=== PATIENT | male | born 1935 | race Caucasian/White ===

== ENCOUNTER 2016-11-27 14:05 | Inpatient (IN) | payer MEDICARE, BC ==
[2016-11-27] VITALS (13 sets, daily range): BP systolic 113–194; BP diastolic 56–119; PULSE 86–116; RESP 16–20; TEMP 97.9–98.2; O2SAT 96–99
[~2016-11-27] VITALS: Ht 180.3 cm; Wt 75.5 kg
[2016-11-27 14:27] LABS: I-STAT POTASSIUM 4.7 MMOL/L (3.5-4.9); I-STAT SODIUM 141 MMOL/L (138-146)
[2016-11-27 14:29] LABS: AUTOMATED NEUTROPHIL # 3.8 TH/MM3 (1.8-7.7); BASOPHIL # 0.1 TH/MM3 (0-0.2); BASOPHIL % 1.2 % (0.0-2.0); EOSINOPHIL # 0.4 TH/MM3 (0-0.4); EOSINOPHIL % 5.7 % (0.0-4.0); HEMATOCRIT 41.4 % (39.0-51.0); HEMO FLAGS DIFF FINAL; LYMPH % 21.4 % (9.0-44.0); LYMPHOCYTE # 1.5 TH/MM3 (1.0-4.8); MEAN CELL VOLUME 98.7 FL (80.0-100.0); MEAN CORPUSCULAR HEMOGLOBIN 33.5 PG (27.0-34.0); MEAN CORPUSCULAR HGB CONC 33.9 % (32.0-36.0); MONO % 16.4 % (0.0-8.0); NEUT % 55.3 % (16.0-70.0); PLATELET COUNT 160 TH/MM3 (150-450); RED BLOOD COUNT 4.19 MIL/MM3 (4.50-5.90); RED CELL DISTRIBUTION WIDTH 15.6 % (11.6-17.2); WHITE BLOOD COUNT 6.9 TH/MM3 (4.0-11.0)
[2016-11-27] MEDS ORDERED: IOHEXOL 350 MG/ML 10 ML VIAL (for RAD DIAG) IV ONE (14:29)
--- NOTE | 2016-11-27 14:30 | RADRPT ---
EXAM DATE/TIME: 11/27/2016 14:06 [facility] COMPARISON: No previous studies available for comparison. INDICATIONS : Stroke alert; left side weakness, altered mental status. RADIATION DOSE: 56.77 CTDIvol (mGy) This report was called by Dr. Keith to Dr. Martinez at 2: 27 PM MEDICAL HISTORY : Non-responsive. SURGICAL HISTORY : Non-responsive. ENCOUNTER: Initial ACUITY: 1 day PAIN SCALE: Non-responsive LOCATION: cranial TECHNIQUE: Multiple contiguous axial images were obtained of the head. Using automated exposure control and adj ustment of the mA and/or kV according to patient size, radiation dose was kept as low as reasonably a chievable to obtain optimal diagnostic quality images. FINDINGS: CEREBRUM: The ventricles are normal for age. Mild age-appropriate atrophy with minimal deep white matter microv ascular ischemic demyelinization. No evidence of midline shift, mass lesion, hemorrhage or acute infa rction. No extra-axial fluid collections are seen. POSTERIOR FOSSA: The cerebellum and brainstem are intact. The 4th ventricle is midline. The cerebellopontine angle i s unremarkable. EXTRACRANIAL: The visualized portion of the orbits is intact. Mucoperiosteal thickening in the ethmoid and maxillar y sinuses. SKULL: The calvaria is intact. No evidence of skull fracture. CONCLUSION: Normal for age. No acute intracranial process. Ken Keith MD on November 27, 2016 at 14:24 Board Certified Radiologist. This report was verified electronically.
[2016-11-27 14:35] LABS: APTT (PATIENT) 26.6 SEC (24.3-30.1); INTERNATIONAL NORMALIZED RATIO 1.4 RATIO; PROTHROMBIN TIME - PATIENT 15.4 SEC (9.8-11.6)
--- NOTE | 2016-11-27 14:36 | RADRPT ---
EXAM DATE/TIME: 11/27/2016 14:16 [facility] COMPARISON: CT BRAIN W/O CONTRAST, November 27, 2016, 14:06. INDICATIONS : Stroke alert; left side weakness. IV CONTRAST: 50 cc Omnipaque 350 (iohexol) IV ; Cumulative dose for multiple exams. RADIATION DOSE: 15.52 CTDIvol (mGy) ; Combined studies MEDICAL HISTORY : Non-responsive. SURGICAL HISTORY : Non-responsive. ENCOUNTER: Initial ACUITY: 1 day PAIN SCALE: Non-responsive LOCATION: cranial TECHNIQUE: Volumetric scanning was performed using a multi-row detector CT scanner. The data was post processed with a variety of visualization algorithms including full volume maximum intensity projection, multi -planar sliding thin slab reformation, curved planar reformation, and surface rendering techniques. Using automated exposure control and adjustment of the mA and/or kV according to patient size, radiat ion dose was kept as low as reasonably achievable to obtain optimal diagnostic quality images. FINDINGS: There is excellent visualization of the major intracranial arteries out to the third and fourth order branch vessels. There is no evidence for aneurysm and no evidence for vascular malformation. Distal right MCA reveals a short segment 2 or 3 mm area of significant stenosis. CONCLUSION: Abnormal short segment distal right middle cerebral artery M1 segment over a 3 cm length with signifi cant stenosis. Ken Keith MD on November 27, 2016 at 14:31 Board Certified Radiologist. This report was verified electronically.
[2016-11-27] MEDS ORDERED: DIGO0.12 PO (14:50)
[2016-11-27] MEDS ORDERED: FERR1TAB58 PO (14:50)
[2016-11-27] MEDS ORDERED: WARF-20 PO (14:50)
[2016-11-27] MEDS ORDERED: METO100T PO (14:50)
[2016-11-27] MEDS ORDERED: LOSA25TA PO (14:50)
--- NOTE | 2016-11-27 14:59 | RADRPT ---
EXAM DATE/TIME: 11/27/2016 14:16 [facility] COMPARISON: CTA BRAIN W 3D RECON, November 27, 2016, 14:16. CT BRAIN W/O CONTRAST, November 27, 2016, 14:06. INDICATIONS : Stroke alert; left side weakness. IV CONTRAST: 50 cc Omnipaque 350 (iohexol) IV ; Cumulative dose for multiple exams. RADIATION DOSE: 15.52 CTDIvol (mGy) ; Combined studies - Brain/Cervical Spine MEDICAL HISTORY : Non-responsive. SURGICAL HISTORY : Non-responsive. ENCOUNTER: Initial ACUITY: 1 day PAIN SCALE: Non-responsive LOCATION: neck TECHNIQUE: Volumetric scanning was performed using a multirow detector CT scanner. The data was post processed with a variety of visualization algorithms including full-volume maximum intensity projection, multip lanar sliding thin-slab reformation, curved-planar reformation, and surface-rendering techniques. Us ing automated exposure control and adjustment of the mA and/or kV according to patient size, radiatio n dose was kept as low as reasonably achievable to obtain optimal diagnostic quality images. FINDINGS: AORTIC ARCH: Normal 3 vessel origin is noted with flecks of calcification at the initial segment of the left subcl patrick and left common carotid artery as well as origin of the right vertebral artery RIGHT CAROTID: There is atherosclerotic calcific plaquing initial segment the internal carotid with high grade steno sis in the range of 90% of an initial 1 cm segment. LEFT CAROTID: Posterior soft and calcific plaque initial segment of the internal carotid artery without significant stenosis. VERTEBRALS: The vertebral arteries have a symmetric diameter. No stenotic lesions are seen. Calcification noted at the origin the right vertebral artery CONCLUSION: Atherosclerotic calcific and soft plaquing initial segment of bilateral internal carotid arteries wit hout stenosis on the left and there is high grade 90% stenosis on the right. Ken Keith MD on November 27, 2016 at 14:54 Board Certified Radiologist. This report was verified electronically.
[2016-11-27 15:05] LABS: BLOOD, URINE NEG (NEG); COMMENT (UR) CULT NOT INDICATED; GLUCOSE,URINE NEG (NEG); KETONE, URINE NEG (NEG); MUCUS URINE FEW /lpf (OCC); NITRITE,URINE NEG (NEG); URINE COLOR YELLOW (YELLW/STRAW)
[2016-11-27 15:10] LABS: AMPHETAMINE, URINE NEG (NEG); BARBITURATES, URINE NEG (NEG); COCAINE, URINE NEG (NEG)
--- NOTE | 2016-11-27 15:17 | PD ---
HPI Chief Complaint: Stroke Alert Time Seen by Provider: 14:06 Travel History International Travel<30 days: No Contact w/Intl Traveler<30days: No Traveled to known affect area: No History of Present Illness HPI This is a 81-year-old male who has a history of atrial fibrillation who presents to the emergency department having been walking to the bathroom seen normal by his family at 12:30 and at 1250 they heard a thump and found him on the bathroom floor having fallen. The patient is on Coumadin. He was found to have left arm and left leg weakness by EMS and a stroke alert was called. History is limited due to the patient's dysarthria. [facility] Past Medical History Medical History: Unable to Obtain ?: Unknown Past Surgical History Surgical History: Unable to Obtain Social History Alcohol Use: No Tobacco Use: No Substance Use: No Allergies-Medications (Allergen,Severity, Reaction): Coded Allergies: Lisinopril (Verified Allergy, Unknown, 11/27/16) Reported Meds & Prescriptions Reported Meds & Active Scripts Active Reported Losartan (Losartan Potassium) 25 Mg Tab 25 Mg PO DAILY Warfarin 4 Mg Tab 4 Mg PO DAILY Iron (Ferrous Sulfate) 50 Mg Tab 65 Mg PO DAILY Digoxin 0.125 Mg Tab 0.125 Mg PO DAILY Metoprolol Tartrate 100 Mg Tab 100 Mg PO BID Review of Systems ROS Limitations: Speech Impaired Physical Exam Narrative GENERAL:Well appearing, no acute distress SKIN: Warm and dry. HEAD: Atraumatic. Normocephalic. EYES: Pupils equal and round. No injection or drainage. ENT: Moist mucous membranes NECK: Trachea midline. CARDIOVASCULAR: Regular rate and rhythm. No murmur appreciated. RESPIRATORY: Clear to auscultation. Breath sounds equal bilaterally. GASTROINTESTINAL: Abdomen soft, non-tender, nondistended. MUSCULOSKELETAL: No obvious deformities. NEUROLOGICAL: Awake and alert. Left-sided facial droop, complete left upper extremity paralysis, 3 out of 5 strength in the left lower extremity, ataxia on the left side, mild dysarthria and aphasia PSYCHIATRIC: Appropriate mood and affect; insight and judgment normal. Data Data Last Documented VS Vital Signs Date Time Temp Pulse Resp B/P Pulse Ox O2 Delivery O2 Flow Rate FiO2 11/27/16 14:55 108 16 182/116 99 Nasal Cannula 2 11/27/16 14:05 98.2 Orders Diet Npo (11/27/16 Dinner) Activity Bed Rest (11/27/16 ) Electrocardiogram (11/27/16 ) I-Stat Creatinine (11/27/16 14:06) I-Stat Profile (11/27/16 14:06) Prothrombin Time / Inr (Pt) (11/27/16 14:06) Act Partial Throm Time (Ptt) (11/27/16 14:06) Complete Blood Count With Diff (11/27/16 14:06) Fibrinogen (11/27/16 14:06) Creatine Kinase (Cpk) (11/27/16 14:06) Troponin I (11/27/16 14:06) Ua Includes Microscopic (11/27/16 14:06) Drug Screen, Random Urine (11/27/16 14:06) Type And Screen (11/27/16 14:06) Ct Brain W/O Iv Contrast(Rout) (11/27/16 ) Consult Neurology (11/27/16 ) Blood Glucose (11/27/16 14:06) Ecg Monitoring (11/27/16 14:06) Neuro Checks Q2HX12,Q4H (11/27/16 14:06) Nursing Bedside Swallow Assess .ONCE (11/27/16 14:06) Iv Access Insert/Monitor (11/27/16 14:06) NPO (11/27/16 14:06) Oximetry (11/27/16 14:06) Oxygen Administration (11/27/16 14:06) Resp Oxygen Agustin C Titrat 1-4 L (11/27/16 14:06) Cath For Specimen (11/27/16 14:06) Cta Brain W Iv Contrast W 3d (11/27/16 ) Cta Neck W Iv Contrast W 3d (11/27/16 ) Iohexol 350 Inj (Omnipaque 350 Inj) (11/27/16 14:29) Nicardipine Inj (Cardene Inj) (11/27/16 15:01) Verapamil Inj (Isoptin Inj) (11/27/16 15:27) Midazolam Inj (Versed Inj) (11/27/16 15:36) Fentanyl Inj (Fentanyl Inj) (11/27/16 15:36) Admit Order (Ed Use Only) (11/27/16 15:41) Angiogram, Cerebral Wo Arch (11/27/16 ) Labs Laboratory Tests Test 11/27/16 11/27/16 14:08 14:25 White Blood Count 6.9 TH/MM3 Red Blood Count 4.19 MIL/MM3 Hemoglobin 14.0 GM/DL Bedside Hemoglobin 14.6 G/DL Hematocrit 41.4 % Bedside Hematocrit 43.0 % Mean Corpuscular Volume 98.7 FL Mean Corpuscular Hemoglobin 33.5 PG Mean Corpuscular Hemoglobin 33.9 % Concent Red Cell Distribution Width 15.6 % Platelet Count 160 TH/MM3 Mean Platelet Volume 8.3 FL Neutrophils (%) (Auto) 55.3 % Lymphocytes (%) (Auto) 21.4 % Monocytes (%) (Auto) 16.4 % Eosinophils (%) (Auto) 5.7 % Basophils (%) (Auto) 1.2 % Neutrophils # (Auto) 3.8 TH/MM3 Lymphocytes # (Auto) 1.5 TH/MM3 Monocytes # (Auto) 1.1 TH/MM3 Eosinophils # (Auto) 0.4 TH/MM3 Basophils # (Auto) 0.1 TH/MM3 CBC Comment DIFF FINAL Differential Comment Prothrombin Time 15.4 SEC Prothromb Time International 1.4 RATIO Ratio Activated Partial 26.6 SEC Thromboplast Time Fibrinogen 241 mg/dL Bedside Sodium 141 MMOL/L Bedside Potassium 4.7 MMOL/L Bedside Chloride 105 MMOL/L Bedside Blood Urea Nitrogen 13 MG/DL Bedside Creatinine 1.2 MG/DL Bedside Glucose 132 MG/DL Total Creatine Kinase 100 U/L Troponin I LESS THAN 0.02 NG/ML Blood Type A NEGATIVE Antibody Screen NEGATIVE Blood Bank Comment Urine Color YELLOW Urine Turbidity CLEAR Urine pH 8.0 Urine Specific [place] 1.016 Urine Protein TRACE mg/dL Urine Glucose (UA) NEG mg/dL Urine Ketones NEG mg/dL Urine Occult Blood NEG Urine Nitrite NEG Urine Bilirubin NEG Urine Urobilinogen LESS THAN 2.0 MG/DL Urine Leukocyte Esterase NEG Urine RBC LESS THAN 1 /hpf Urine WBC LESS THAN 1 /hpf Urine Mucus FEW /lpf Microscopic Urinalysis Comment CULT NOT INDICATED Urine Opiates Screen NEG Urine Barbiturates Screen NEG Urine Amphetamines Screen NEG Urine Benzodiazepines Screen NEG Urine Cocaine Screen NEG Urine Cannabinoids Screen NEG MDM Medical Screen Exam Complete: Yes Emergency Medical Condition: Yes Differential Diagnosis Hemorrhagic stroke, ischemic stroke, TIA, seizure, mass Narrative Course This is a 81-year-old male who presents to the emergency department with symptoms classic for ischemic stroke. He had an NIH stroke scale of 20 on arrival and last seen normal time was an hour and a half prior to arrival in the ER. Stroke alert was called and the patient was transported rapidly to CT which was negative for intracranial hemorrhage. PT was 15.4 which is contraindication to systemic TPA. The case was discussed with Dr. Gunderson from interventional radiology who agreed to take the patient for thrombectomy. Family was amenable to this and understood the risks. Patient was transferred to interventional radiology and will be admitted to the intensive care unit. Critical Care Narrative Aggregate critical care time was 50 minutes. Time to perform other separately billable procedures was not included in the critical care time. My time did not include minutes spent treating any other patients simultaneously or on activities that did not directly contribute to the patient's treatment. The services I provided to this patient were to treat and/or prevent clinically significant deterioration that could result in: Disability, I provided critical care services requiring my management, as noted below: Chart data review, documentation time, medication orders and management, vital sign assessments/reviewing monitor data, ordering and reviewing lab tests, ordering and interpreting/reviewing x-rays and diagnostic studies, care of the patient and discussion of the patient with the admitting physicians. Stroke Alert NIHSS NIH Stroke Scale Result: 20 NIHSS Time Completed: 14:00 Thrombolytic Contraindications Contraindications Comment: Coumadin with PT of 15.4 Physician Communication Physician Communication Discussed with Dr. Obrien from neurology and Dr. Gunderson from interventional radiology as well as Dr. Jacobsen from ICU Diagnosis Diagnosis: Primary Impression: Acute right MCA stroke Admitting Physician Requests: Admit Adrianna Martinez MD Nov 27, 2016 15:16
[2016-11-27] MEDS ORDERED: VERAPAMIL HCL 5 MG/2 ML VIAL ONE (15:27)
[2016-11-27] MEDS ORDERED: MIDAZOLAM HCL 5 MG/5 ML VIAL ONE (15:36)
[2016-11-27] MEDS ORDERED: fentaNYL CITRATE 250 MCG/5 ML AMP ONE (15:36)
[2016-11-27 15:55] LABS: CREATINE KINASE 100 U/L (39-308)
[2016-11-27] MEDS ORDERED: HEPARIN SODIUM - IV 10,000 UNITS/10 ML VIAL ONE (16:01)
[2016-11-27] MEDS ORDERED: IODIXANOL 320 MG/ML 50 ML VIAL (for RAD SPEC) I-ARTERIAL ONE (16:12)
--- NOTE | 2016-11-27 16:24 | PD.RAD ---
Post Procedure Progress Note Pre Procedure Diagnosis: (1) Acute right MCA stroke Post Procedure Diagnosis: (1) Acute right MCA stroke Procedure Date: Nov 27, 2016 Supervising Radiologist: Tu Gunderson JR Proceduralist/Assist: Beulah Castle RT(R), Cheryle Chacon RT(R)() Anesthesia: Conscious Sedation Plan of Activity Patient to Unit: Critical Care Patient Condition: Fair See PACS Report for procedural detail/treatment Vascular-Arterial Procedure Procedure 1 Procedure Site: Cerebral Procedure(s): Angiogram Access Access Site(s): Right Femoral Artery Closure Site(s): Right vascular closure device Findings: Right ICA cerebral angiography shows no thrombus. 40-50% stenosis of proximal M2 branch. Good flow thru this stenosis. Good enhancement of the brain parenchyma. Right ICA origin stenosis 50-60%. Jr. Neptali,Tu Spence MD Nov 27, 2016 16:24
--- NOTE | 2016-11-27 17:14 | RADRPT ---
EXAM DATE/TIME: 11/27/2016 15:10 [facility] COMPARISON: CTA BRAIN W 3D RECON, November 27, 2016, 14:16. INDICATIONS : Patient presents with stroke in need of cerebral angiogram. Stroke score of 20. Subtherapeutic on Cou madin. INR 1.4. Left hemiparesis. MEDICAL HISTORY : A-Fib SURGICAL HISTORY : Unable to obtain ENCOUNTER: Initial ACUITY: 1 day PAIN SCORE: Nonresponsive. FLUORO TIME: 4.2 minutes ACCESS SITE: Right Femoral artery SEDATION TIME: 30 minutes CONTRAST: 50 cc Visipaque (iodixanol) MEDICATION(S): 1.) 2 mg midazolam (Versed) IV 2.) 100 mcg fentanyl (Sublimaze) IV DEVICE(S): 1.) Right common femoral artery 5F Angio-Seal PROCEDURE : 1. Ultrasound-guided puncture of the access site. 2. Angiography of the access site prior to closure device. 3. Conscious sedation with continuous EKG and Oximetry monitoring. 4. Percutaneous closure of the access site. 5. Angiography of the right common carotid artery 6. Angiography of the intracranial right ICA The risks, benefits and alternatives to the procedure were explained and verbal and written consent w as obtained. The site was prepped in sterile fashion. Full sterile technique was used, including ca p, mask, sterile gloves and gown and a large sterile sheet. Hand hygiene and 2% chlorhexidine and/or betadine/alcohol prep was utilized per protocol for cutaneous antisepsis. The skin and subcutaneous tissues were infiltrated with local anesthetic solution. With ultrasound and fluoroscopic guidance the right common femoral artery was punctured and a vascula r sheath was placed. Angiography of the common femoral artery was performed for evaluation prior to percutaneous closure device placement. A5 Divehi sheath was placed. A Berenstein catheter was utilized to select the right common carotid ar teena and angiography of the extracranial ICA performed. These images reveal a focal calcified atheros clerotic plaque involving the origin of the right ICA. This generates a 50-60% stenosis of the ICA or igin. No ulceration. Good antegrade flow through the stenotic segment is seen. A Berenstein catheter was then positioned within the extracranial ICA at the level of the skull base. Dedicated intracrania l angiography on the right was performed at this level. This reveals a focal stenosis involving the p roximal M2 branch on the right. There is circumferential smooth mild narrowing of the proximal M2 bra nch best appreciated on the frontal projection. This correlates to the finding on the CTA. Area of na rrowing is consistent with a stenosis. Is not consistent with a embolus or thrombus. The stenosis carter sures approximately 50%. Good antegrade flow is seen through the stenotic segment. There is good pare nchymal enhancement the right cerebral hemisphere. No areas of poor enhancement observed. Hemostasis was obtained with the prescribed medicated closure device. Conscious sedation was perform ed with the prescribed dosages and duration as above. EKG and oximetry remained stable throughout th e procedure. The patient was sent to post anesthesia recovery in stable condition. CONCLUSION: 1. 50-60% stenosis of the right ICA origin. 2. 50% stenosis of a proximal M2 branch on the right without thrombus or occlusion. Good flow is seen through this segment. There is no embolus or thrombus present amenable to thrombectomy. Tu Gunderson Jr., MD on November 27, 2016 at 17:01 Board Certified Radiologist. This report was verified electronically.
[2016-11-27] MEDS: SODIUM CHLOR 0.9% 1000 ML INJ 1,000 ML IV SCH (20:03)
--- NOTE | 2016-11-27 20:12 | MB ---
cc: NICOL MENA M.D.,LIYA DATE OF CONSULTATION: 11/27/2016 REASON FOR CONSULTATION: HISTORY OF PRESENT ILLNESS: The patient is a 81 year-old seen in neurological consultation. He came in as a stroke alert. I spoke to Dr. Cortez on multiple occasions. The patient was seen in the emergency room approximately 45 minutes ago. He had the onset of symptoms around 12:30 when he was last noted to be functioning well per the family. About 15 to 20 minutes later, the family heard a thump and found him on the bathroom floor. The patient has a history of atrial fibrillation on Coumadin. In the emergency room he was noted to have left-sided weakness, some bruising in his left frontal orbital region and conjunctival bleeding on the left. The patient reportedly is taking warfarin 4 milligrams daily, losartan, digoxin, metoprolol. PHYSICAL EXAMINATION: Exam showed the patient to be awake, denying headaches. He was reasonably alert and grossly oriented with dysarthric speech. There was left facial weakness and there was severe left upper extremity weakness. Left lower extremity weakness is moderately severe and he almost is able to raise the left leg. He does dorsiflex the left foot and toes and resists mildly. The right-sided limbs were strong on the motor exam. He has perception to somatosensory stimulation bilaterally. The CT brain is negative. The CTA neck shows right internal carotid artery 90% stenosis and no significant stenosis on the left. The CT angio neck shows a right M1 segment with significant stenosis. ASSESSMENT Right hemisphere ischemic cerebrovascular event. Atrial fibrillation, on Coumadin with INR being 1.4, though the prothrombin time is 15.4. I did not feel he was a candidate for TPA because of his elevated protime, he is 81-year-old and he also has other concerns including the conjunctival hemorrhage and left frontal orbital bruising from the fall. Nonetheless, as discussed with Dr. Cortez, the patient was felt to be a possible candidate for endovascular thrombectomy and the interventional radiology team was contacted and is evaluating the patient in this regard with the initial plan to go ahead with the procedure. I have discussed with the patient's at the bedside in the emergency room the benefits and the basic risks with these but evidently the procedure will be discussed by the interventional radiologist in more detail. I will follow the neurological course. Thank you for asking us to assist in his care. MD JORDI Aguilar/PRAKASH /3:44 PM /7:10 PM
[2016-11-27] MEDS ORDERED: ONDANSETRON HCL 4 MG/2 ML VIAL IV PRN (20:15)
[2016-11-27] MEDS ORDERED: SODIUM CHLORIDE 0.9% FLUSH 5 ML FLUSH IV FLUSH PRN (20:15)
[2016-11-27] MEDS ORDERED: MISCELLANEOUS NURSING INFORMATION XX SCH (20:15)
[2016-11-27] MEDS ORDERED: RESP: ALBUTEROL 2.5 MG/IPRATROPIUM 0.5 MG NEB (PRN) INH (20:15)
[2016-11-27] MEDS ORDERED: METOCLOPRAMIDE HCL 10 MG/2 ML VIAL IV PRN (20:15)
[2016-11-27] MEDS ORDERED: CHLORHEXIDINE GLUCONATE 2 % 1 PACK (2 CLOTHS) TOP PRN (20:15)
[2016-11-27] MEDS: FAMOTIDINE 20 MG/2 ML VIAL IV PUSH SCH (21:00)
[2016-11-27] MEDS: SODIUM CHLORIDE 0.9% FLUSH 5 ML FLUSH IV FLUSH SCH (21:00)
[2016-11-27] MEDS: DOCUSATE SODIUM 100 MG CAP PO SCH (21:00)
[2016-11-27] MEDS: METOPROLOL TARTRATE 100 MG TAB PO SCH (21:00)
[2016-11-27] MEDS: HEPARIN SODIUM - SQ 10,000 UNITS/ML VIAL SQ SCH (22:00)
--- NOTE | 2016-11-27 22:21 | HHI.HP ---
HPI Service Critical Care Medicine Primary Care Physician Admission Diagnosis stroke Diagnosis: Travel History International Travel<30 Days: No Contact w/Intl Traveler <30 Da: No Traveled to Known Affected Are: No History of Present Illness 81-year-old male who has a history of atrial fibrillation and hypertension presents having been walking to the bathroom seen normal by his family at 12:30 and at 1250 they heard a thump and found him on the bathroom floor having fallen. The patient is on Coumadin for chronic atrial fibrillation. He was found to have left arm and left leg weakness by EMS and a stroke alert was called. Review of Systems ROS Unable to obtain due to patient's dysarthria Past Family Social History Allergies: Coded Allergies: Lisinopril (Verified Allergy, Unknown, 11/27/16) Past Medical History Hypertension Atrial fibrillation Chronic anticoagulation Past Surgical History Unknown Reported Medications Reported Meds & Active Scripts Active Reported Losartan (Losartan Potassium) 25 Mg Tab 25 Mg PO DAILY Warfarin 4 Mg Tab 4 Mg PO DAILY Iron (Ferrous Sulfate) 50 Mg Tab 65 Mg PO DAILY Digoxin 0.125 Mg Tab 0.125 Mg PO DAILY Metoprolol Tartrate 100 Mg Tab 100 Mg PO BID Active Ordered Medications Current Medications Medications (Trade) Dose Ordered Sig/Opal Route PRN Reason Start Time Stop Time Status Last Admin Dose Admin Sodium Chloride (NS 1000 ml Inj) 1,000 ml @ 84 mls/hr [id number] IV 11/27/16 20:03 IV Flush (NS Flush) 2 ml UNSCH PRN IV FLUSH FLUSH AFTER USING IV ACCESS 11/27/16 20:15 IV Flush (NS Flush) 2 ml BID IV FLUSH 11/27/16 21:00 Acetaminophen (Tylenol) 650 mg Q6H PRN PO PAIN 1-10 AND/OR FEVER >101F 11/27/16 20:15 Morphine Sulfate (Morphine Inj) 2 mg Q2H PRN IV PAIN SCALE 6 TO 10 11/27/16 20:15 Famotidine (Pepcid Inj) 20 mg Q12HR IV PUSH 11/27/16 21:00 Ondansetron HCl (Zofran Inj) 4 mg Q6H PRN IV NAUSEA OR VOMITING 11/27/16 20:15 Metoclopramide HCl (Reglan Inj) 10 mg Q6H PRN IV NAUSEA OR VOMITING 11/27/16 20:15 Docusate Sodium (Colace) 100 mg BID PO 11/27/16 21:00 Heparin Sodium (Porcine) (Heparin Inj) 5,000 units Q8H SQ 11/27/16 22:00 Miscellaneous Information 1 Q361D XX 11/27/16 20:15 Chlorhexidine Gluconate (Chlorhexidine 2% Cloth) 3 pack Taper DAILY@04 TOP 11/28/16 04:00 11/24/17 03:59 Chlorhexidine Gluconate (Chlorhexidine 2% Cloth) 3 pack UNSCH PRN TOP HYGIENIC CARE 11/27/16 20:15 Digoxin (Lanoxin) 0.125 mg DAILY PO 11/28/16 09:00 Losartan Potassium (Cozaar) 25 mg DAILY PO 11/28/16 09:00 Metoprolol Tartrate (Lopressor) 100 mg BID PO 11/27/16 21:00 Ferrous Sulfate (Ferrous Sulfate) 325 mg DAILY PO 11/28/16 09:00 Family History Noncontributory Social History Negative Physical Exam Vital Signs Vital Signs Date Time Temp Pulse Resp B/P Pulse Ox O2 Delivery O2 Flow Rate FiO2 11/27/16 18:00 86 11/27/16 16:45 100 11/27/16 14:55 108 16 182/116 99 Nasal Cannula 2 11/27/16 14:51 116 16 182/119 99 Nasal Cannula 2 11/27/16 14:41 89 16 181/106 99 Nasal Cannula 2 11/27/16 14:25 94 16 194/102 99 Nasal Cannula 2 11/27/16 14:20 98 16 173/111 99 Nasal Cannula 2 11/27/16 14:15 102 16 156/118 99 Nasal Cannula 2 11/27/16 14:10 101 16 162/98 96 Nasal Cannula 2 11/27/16 14:09 98 Nasal Cannula 2.00 11/27/16 14:09 98 2.00 11/27/16 14:05 114 16 98 Room Air 11/27/16 14:05 99 Nasal Cannula 2 11/27/16 14:05 99 Nasal Cannula 2 11/27/16 14:05 98.2 114 16 113/56 98 Physical Exam GENERAL: Well-nourished, well-developed patient. SKIN: Warm and dry. HEAD: Normocephalic. EYES: No scleral icterus. No injection or drainage. NECK: Supple, trachea midline. No JVD or lymphadenopathy. CARDIOVASCULAR: Regular rate and rhythm without murmurs, gallops, or rubs. RESPIRATORY: Breath sounds equal bilaterally. No accessory muscle use. GASTROINTESTINAL: Abdomen soft, non-tender, nondistended. MUSCULOSKELETAL: No cyanosis, or edema. BACK: Nontender without obvious deformity. No CVA tenderness. EXTREMITIES: Significant left sided weakness more in upper extremity Laboratory Laboratory Tests Test 11/27/16 11/27/16 14:08 14:25 White Blood Count 6.9 Red Blood Count 4.19 Hemoglobin 14.0 Bedside Hemoglobin 14.6 Hematocrit 41.4 Bedside Hematocrit 43.0 Mean Corpuscular Volume 98.7 Mean Corpuscular Hemoglobin 33.5 Mean Corpuscular Hemoglobin 33.9 Concent Red Cell Distribution Width 15.6 Platelet Count 160 Mean Platelet Volume 8.3 Neutrophils (%) (Auto) 55.3 Lymphocytes (%) (Auto) 21.4 Monocytes (%) (Auto) 16.4 Eosinophils (%) (Auto) 5.7 Basophils (%) (Auto) 1.2 Neutrophils # (Auto) 3.8 Lymphocytes # (Auto) 1.5 Monocytes # (Auto) 1.1 Eosinophils # (Auto) 0.4 Basophils # (Auto) 0.1 CBC Comment DIFF FINAL Differential Comment Prothrombin Time 15.4 Prothromb Time International 1.4 Ratio Activated Partial 26.6 Thromboplast Time Fibrinogen 241 Bedside Sodium 141 Bedside Potassium 4.7 Bedside Chloride 105 Bedside Blood Urea Nitrogen 13 Bedside Creatinine 1.2 Bedside Glucose 132 Total Creatine Kinase 100 Troponin I LESS THAN 0.02 Blood Type A NEGATIVE Antibody Screen NEGATIVE Blood Bank Comment Urine Color YELLOW Urine Turbidity CLEAR Urine pH 8.0 Urine Specific [place] 1.016 Urine Protein TRACE Urine Glucose (UA) NEG Urine Ketones NEG Urine Occult Blood NEG Urine Nitrite NEG Urine Bilirubin NEG Urine Urobilinogen LESS THAN 2.0 Urine Leukocyte Esterase NEG Urine RBC LESS THAN 1 Urine WBC LESS THAN 1 Urine Mucus FEW Microscopic Urinalysis Comment CULT NOT INDICATED Urine Opiates Screen NEG Urine Barbiturates Screen NEG Urine Amphetamines Screen NEG Urine Benzodiazepines Screen NEG Urine Cocaine Screen NEG Urine Cannabinoids Screen NEG Result Diagram: 11/27/16 1408 Imaging Last 24 hours Impressions Neck CTA 11/27/16 0000 Signed Impressions: Service Date/Time: Sunday, November 27, 2016 14:16 - CONCLUSION: Atherosclerotic calcific and soft plaquing initial segment of bilateral internal carotid arteries without stenosis on the left and there is high grade 90%% stenosis on the right. Ken Keith MD Head CTA 11/27/16 0000 Signed Impressions: Service Date/Time: Sunday, November 27, 2016 14:16 - CONCLUSION: Abnormal short segment distal right middle cerebral artery M1 segment over a 3 cm length with significant stenosis. Ken eKith MD Head CT 11/27/16 0000 Signed Impressions: Service Date/Time: Sunday, November 27, 2016 14:06 - CONCLUSION: Normal for age. No acute intracranial process. Ken Keith MD Cerebral Arteriogram 11/27/16 0000 Signed Impressions: Service Date/Time: Sunday, November 27, 2016 15:10 - CONCLUSION: 1. 50-60% % stenosis of the right ICA origin. 2. 50%% stenosis of a proximal M2 branch on the right without thrombus or occlusion. Good flow is seen through this segment. There is no embolus or thrombus present amenable to thrombectomy. Tu Gunderson Jr., MD Assessment and Plan Problem List: (1) Acute right MCA stroke ICD Code: I63.511 Status: Acute Assessment and Plan Acute right MCA CVA - No intervention indicated per IR - Not a candidate for TPA due to chronic Coumadin use - Supportive care - Aspirin heparin - Blood pressure control - PT and OT eval and treat - Speech evaluation - Further the per neurology Hypertension - Losartan - Metoprolol - Cardene drip when necessary - SBP less than 160 Atrial fibrillation - Digoxin - Metoprolol - Resume Coumadin when okay with neurology DVT GI prophylaxis - Continue heparin and Pepcid Critical Care: The total critical care time was 35 minutes. Time to perform other separately billable procedures was not included in the critical care time. Prince Robins MD Nov 27, 2016 22:21
--- NOTE | 2016-11-27 23:03 | EKG ---
Date Performed: 11/27/2016 Time Performed: 14:31:32 PTAGE: 81 years EKG: ATRIAL FIBRILLATION WITH RAPID VENTRICULAR RESPONSE LOW QRS VOLTAGE IN EXTREMITY LEADS INFE RIOR MYOCARDIAL INFARCTION ANTEROSEPTAL MYOCARDIAL INFARCTION ABNORMAL ECG NO PREVIOUS TRACING DOCTOR: Tucker Tyler Interpretating Date/Time 11/27/2016 23:02:46
[2016-11-28] VITALS (14 sets, daily range): BP systolic 130–182; BP diastolic 64–95; PULSE 78–101; RESP 12–19; TEMP 97.6–98.5; O2SAT 93–99
[2016-11-28] MEDS: CHLORHEXIDINE GLUCONATE 2 % 1 PACK (2 CLOTHS) TOP SCH (04:00)
[2016-11-28 04:40] LABS: AUTOMATED NEUTROPHIL # 7.3 TH/MM3 (1.8-7.7); BASOPHIL % 0.4 % (0.0-2.0); EOSINOPHIL % 0.5 % (0.0-4.0); HEMO FLAGS DIFF FINAL; LYMPHOCYTE # 1.2 TH/MM3 (1.0-4.8); MEAN CELL VOLUME 97.8 FL (80.0-100.0); MEAN CORPUSCULAR HEMOGLOBIN 33.4 PG (27.0-34.0); MEAN CORPUSCULAR HGB CONC 34.2 % (32.0-36.0); MONO % 15.4 % (0.0-8.0); NEUT % 71.7 % (16.0-70.0); PLATELET COUNT 143 TH/MM3 (150-450); RED BLOOD COUNT 3.99 MIL/MM3 (4.50-5.90); RED CELL DISTRIBUTION WIDTH 15.4 % (11.6-17.2); WHITE BLOOD COUNT 10.2 TH/MM3 (4.0-11.0)
[2016-11-28 05:10] LABS: ALKALINE PHOSPHATASE 71 U/L (45-117); ALT (GPT) 16 U/L (12-78); ANION GAP 8 MEQ/L (5-15); AST (GOT) 17 U/L (15-37); BICARBONATE 23.9 MEQ/L (21.0-32.0); BLOOD UREA NITROGEN 10 MG/DL (7-18); CHLORIDE 109 MEQ/L (98-107); GLOMERULAR FILTRATION RATE 68 ML/MIN (>89); POTASSIUM 3.8 MEQ/L (3.5-5.1); SODIUM (NA) 141 MEQ/L (136-145)
[2016-11-28] MEDS: HEPARIN SODIUM - SQ 10,000 UNITS/ML VIAL SQ SCH ×3 (06:00→22:00)
[2016-11-28] MEDS: SODIUM CHLOR 0.9% 1000 ML INJ 1,000 ML IV SCH ×2 (07:58→19:53)
[2016-11-28] MEDS: SODIUM CHLORIDE 0.9% FLUSH 5 ML FLUSH IV FLUSH SCH ×2 (08:37→21:00)
[2016-11-28] MEDS: DOCUSATE SODIUM 100 MG CAP PO SCH ×2 (09:00→21:00)
[2016-11-28] MEDS: FERROUS SULFATE 325 MG (65 MG ELEMENTAL IRON) TAB PO SCH (09:00)
[2016-11-28] MEDS: LOSARTAN 25 MG TAB PO SCH (09:00)
[2016-11-28] MEDS: METOPROLOL TARTRATE 100 MG TAB PO SCH ×2 (09:00→21:00)
[2016-11-28] MEDS: FAMOTIDINE 20 MG/2 ML VIAL IV PUSH SCH ×2 (12:00→21:00)
[2016-11-28] MEDS: ASPIRIN 325 MG TAB PO SCH (12:00)
[2016-11-28] MEDS: ATORVASTATIN 80 MG TAB PO SCH (12:01)
[2016-11-28] MEDS: DIGOXIN 0.125 MG TAB PO SCH (12:01)
[2016-11-28] MEDS: ACETAMINOPHEN 325 MG TAB PO PRN (12:03)
--- NOTE | 2016-11-28 15:14 | HHI.CCPN ---
Subjective Remarks/Hospital Course 81-year-old male who has a history of atrial fibrillation and hypertension presents having been walking to the bathroom seen normal by his family at 12:30 and at 1250 they heard a thump and found him on the bathroom floor having fallen. The patient is on Coumadin for chronic atrial fibrillation. He was found to have left arm and left leg weakness by EMS and a stroke alert was called. 11/28: Evaluated by IR and neurology. No tPA due to longstanding and current coumadin use for a-fib, Intracranial stenosis M2 branch has no clot. Presently treating with BP control. Swallow evaluation underway. Treatment with heparin and ASA. Objective Vital Signs Date Time Temp Pulse Resp B/P Pulse Ox O2 Delivery O2 Flow Rate FiO2 11/28/16 13:03 21 11/28/16 12:00 98.1 80 133/82 95 11/28/16 07:00 Room Air 11/27/16 20:00 2.00 Intake and Output 11/27/16 11/27/16 11/28/16 08:00 16:00 00:00 Intake Total 500 ml Output Total 1000 ml Balance -500 ml Result Diagram: 11/28/16 0421 11/28/16 0421 Imaging Last 24 hours Impressions Neck CTA 11/27/16 0000 Signed Impressions: Service Date/Time: Sunday, November 27, 2016 14:16 - CONCLUSION: Atherosclerotic calcific and soft plaquing initial segment of bilateral internal carotid arteries without stenosis on the left and there is high grade 90%% stenosis on the right. Ken Keith MD Head CTA 11/27/16 0000 Signed Impressions: Service Date/Time: Sunday, November 27, 2016 14:16 - CONCLUSION: Abnormal short segment distal right middle cerebral artery M1 segment over a 3 cm length with significant stenosis. Ken Keith MD Head CT 11/27/16 0000 Signed Impressions: Service Date/Time: Sunday, November 27, 2016 14:06 - CONCLUSION: Normal for age. No acute intracranial process. Ken Keith MD Cerebral Arteriogram 11/27/16 0000 Signed Impressions: Service Date/Time: Sunday, November 27, 2016 15:10 - CONCLUSION: 1. 50-60% % stenosis of the right ICA origin. 2. 50%% stenosis of a proximal M2 branch on the right without thrombus or occlusion. Good flow is seen through this segment. There is no embolus or thrombus present amenable to thrombectomy. Tu Gunderson Jr., MD Objective Remarks GENERAL: Well-nourished, well-developed patient. SKIN: Warm and dry. HEAD: Normocephalic. NECK: Supple, trachea midline. No JVD. Airway widely patent. CARDIOVASCULAR: Irreg Irreg, no JVD. RESPIRATORY:Clear, no wheezes or crackles. No accessory muscle use. GASTROINTESTINAL: Abdomen soft, non-tender, nondistended. MUSCULOSKELETAL: No cyanosis, or edema. BACK: Nontender without obvious deformity. No CVA tenderness. EXTREMITIES: Significant left sided weakness persists. A/P Problem List: (1) Acute right MCA stroke ICD Code: I63.511 Status: Acute Assessment and Plan Acute right MCA CVA - No intervention indicated per IR - Not a candidate for TPA due to chronic Coumadin use - Supportive care - Aspirin, heparin rx - Blood pressure control - PT and OT eval and treat - Speech evaluation - Further the per neurology Hypertension - Losartan - Metoprolol - Cardene drip when necessary - SBP less than 160 Atrial fibrillation - Digoxin - Metoprolol - Resume Coumadin when okay with neurology DVT GI prophylaxis - Continue heparin and Pepcid Overall impression: Acute CVA. Stable respiratory and hemodynamic function. Adam Sims MD Nov 28, 2016 15:14 Adam Sims MD Nov 28, 2016 15:14
--- NOTE | 2016-11-28 17:41 | HHI.PR ---
Review/Management Daily Summary 11/28 doing somewhat better today, ,ore verbal and left arm weaknes improving triceps 4/5 on left, some ballistic technician present as well, shrug soulder on left left leg is 4/5 right side motor normal OK neuro [facility] to resume coumadin rehab Subjective Subjective Comments No acute events reported No headache No chest pain No dyspnea Active Medications Current Medications Medications (Trade) Dose Ordered Sig/Opal Route Start Time Stop Time Status Last Admin (NS 1000 ml Inj) 1,000 ml @ 84 mls/hr [id number] IV 11/27/16 20:03 11/28/16 07:58 (NS Flush) 2 ml UNSCH PRN IV FLUSH 11/27/16 20:15 (NS Flush) 2 ml BID IV FLUSH 11/27/16 21:00 11/28/16 08:37 (Tylenol) 650 mg Q6H PRN PO 11/27/16 20:15 11/28/16 12:03 (Morphine Inj) 2 mg Q2H PRN IV 11/27/16 20:15 (Pepcid Inj) 20 mg Q12HR IV PUSH 11/27/16 21:00 11/28/16 12:00 (Zofran Inj) 4 mg Q6H PRN IV 11/27/16 20:15 (Reglan Inj) 10 mg Q6H PRN IV 11/27/16 20:15 (Colace) 100 mg BID PO 11/27/16 21:00 (Heparin Inj) 5,000 units Q8H SQ 11/27/16 22:00 11/28/16 15:34 Miscellaneous Information 1 Q361D XX 11/27/16 20:15 11/27/16 20:15 (Chlorhexidine 2% Cloth) 3 pack Taper DAILY@04 TOP 11/28/16 04:00 11/24/17 03:59 11/28/16 04:00 (Chlorhexidine 2% Cloth) 3 pack UNSCH PRN TOP 11/27/16 20:15 (Lanoxin) 0.125 mg DAILY PO 11/28/16 09:00 11/28/16 12:01 (Cozaar) 25 mg DAILY PO 11/28/16 09:00 (Lopressor) 100 mg BID PO 11/27/16 21:00 (Ferrous Sulfate) 325 mg DAILY PO 11/28/16 09:00 (Aspirin) 325 mg DAILY PO 11/28/16 09:00 11/28/16 12:00 (Lipitor) 80 mg DAILY PO 11/28/16 09:00 11/28/16 12:01 Allergies Allergies Coded Allergies Lisinopril (Verified Allergy, Unknown, 11/27/16) Exam I&O / VS 11/27/16 11/27/16 11/28/16 14:59 22:59 06:59 Intake Total 500 ml 790 ml Output Total 1000 ml 400 ml Balance -500 ml 390 ml IV Total 500 ml 790 ml Output Urine Total 1000 ml 400 ml Stool Total 0 ml 0 ml Vital Signs Date Time Temp Pulse Resp B/P Pulse Ox O2 Delivery O2 Flow Rate FiO2 11/28/16 16:00 82 11/28/16 16:00 98.5 82 18 150/73 97 11/28/16 14:00 84 11/28/16 13:03 21 11/28/16 12:00 98.1 80 19 133/82 95 11/28/16 12:00 80 11/28/16 10:00 82 11/28/16 08:00 98.3 88 16 135/64 94 11/28/16 08:00 90 11/28/16 07:00 Room Air 11/28/16 06:00 95 11/28/16 04:00 96 11/28/16 04:00 97.6 96 18 130/91 93 11/28/16 02:00 101 11/28/16 00:00 101 11/28/16 00:00 98.0 101 12 133/77 94 11/27/16 22:00 93 11/27/16 22:00 96 11/27/16 20:00 96 11/27/16 20:00 97.9 96 20 158/84 97 11/27/16 20:00 97 Nasal Cannula 2.00 11/27/16 18:00 86 Objective Radiology Results Last 48 hours Impressions Neck CTA 11/27/16 0000 Signed Impressions: Service Date/Time: Sunday, November 27, 2016 14:16 - CONCLUSION: Atherosclerotic calcific and soft plaquing initial segment of bilateral internal carotid arteries without stenosis on the left and there is high grade 90%% stenosis on the right. Ken Keith MD Head CTA 11/27/16 0000 Signed Impressions: Service Date/Time: Sunday, November 27, 2016 14:16 - CONCLUSION: Abnormal short segment distal right middle cerebral artery M1 segment over a 3 cm length with significant stenosis. Ken Keith MD Head CT 11/27/16 0000 Signed Impressions: Service Date/Time: Sunday, November 27, 2016 14:06 - CONCLUSION: Normal for age. No acute intracranial process. Ken Keith MD Cerebral Arteriogram 11/27/16 0000 Signed Impressions: Service Date/Time: Sunday, November 27, 2016 15:10 - CONCLUSION: 1. 50-60% % stenosis of the right ICA origin. 2. 50%% stenosis of a proximal M2 branch on the right without thrombus or occlusion. Good flow is seen through this segment. There is no embolus or thrombus present amenable to thrombectomy. Tu Gunderson Jr., MD Micro and Labs Laboratory Tests Test 11/28/16 04:21 White Blood Count 10.2 Red Blood Count 3.99 Hemoglobin 13.4 Hematocrit 39.0 Mean Corpuscular Volume 97.8 Mean Corpuscular Hemoglobin 33.4 Mean Corpuscular Hemoglobin 34.2 Concent Red Cell Distribution Width 15.4 Platelet Count 143 Mean Platelet Volume 8.6 Neutrophils (%) (Auto) 71.7 Lymphocytes (%) (Auto) 12.0 Monocytes (%) (Auto) 15.4 Eosinophils (%) (Auto) 0.5 Basophils (%) (Auto) 0.4 Neutrophils # (Auto) 7.3 Lymphocytes # (Auto) 1.2 Monocytes # (Auto) 1.6 Eosinophils # (Auto) 0.0 Basophils # (Auto) 0.0 CBC Comment DIFF FINAL Differential Comment Sodium Level 141 Potassium Level 3.8 Chloride Level 109 Carbon Dioxide Level 23.9 Anion Gap 8 Blood Urea Nitrogen 10 Creatinine 1.05 Estimat Glomerular Filtration 68 Rate Random Glucose 128 Calcium Level 7.9 Total Bilirubin 1.0 Aspartate Amino Transf 17 (AST/SGOT) Alanine Aminotransferase 16 (ALT/SGPT) Alkaline Phosphatase 71 Total Protein 6.1 Albumin 2.7 Sergio Nicole MD Nov 28, 2016 17:41
[2016-11-29] VITALS (14 sets, daily range): BP systolic 148–182; BP diastolic 81–103; PULSE 75–115; RESP 12–23; TEMP 98.1–98.8; O2SAT 96–99
[2016-11-29] MEDS: CHLORHEXIDINE GLUCONATE 2 % 1 PACK (2 CLOTHS) TOP SCH (04:00)
[2016-11-29] MEDS: HEPARIN SODIUM - SQ 10,000 UNITS/ML VIAL SQ SCH ×3 (06:00→21:23)
[2016-11-29] MEDS: SODIUM CHLOR 0.9% 1000 ML INJ 1,000 ML IV SCH ×2 (07:48→20:27)
[2016-11-29] MEDS: DOCUSATE SODIUM 100 MG CAP PO SCH ×2 (08:17→20:28)
[2016-11-29] MEDS: METOPROLOL TARTRATE 100 MG TAB PO SCH ×2 (08:17→20:28)
[2016-11-29] MEDS: DIGOXIN 0.125 MG TAB PO SCH (08:17)
[2016-11-29] MEDS: ASPIRIN 325 MG TAB PO SCH (08:17)
[2016-11-29] MEDS: FERROUS SULFATE 325 MG (65 MG ELEMENTAL IRON) TAB PO SCH (08:17)
[2016-11-29] MEDS: ATORVASTATIN 80 MG TAB PO SCH (08:18)
[2016-11-29] MEDS: SODIUM CHLORIDE 0.9% FLUSH 5 ML FLUSH IV FLUSH SCH ×2 (08:18→20:27)
[2016-11-29] MEDS: LOSARTAN 25 MG TAB PO SCH (08:18)
[2016-11-29] MEDS: FAMOTIDINE 20 MG/2 ML VIAL IV PUSH SCH ×2 (08:18→20:28)
--- NOTE | 2016-11-29 09:11 | HHI.PR ---
Review/Management Daily Summary 11/28 doing somewhat better today, ,ore verbal and left arm weaknes improving triceps 4/5 on left, some continuity clerk present as well, shrug soulder on left left leg is 4/5 right side motor normal OK neuro [facility] to resume coumadin rehab 11/29 doing better even more responsive than yesterday neuro [facility] [place] coumadin rehab, call prn Subjective Subjective Comments No acute events reported No headache No chest pain No dyspnea Active Medications Current Medications Medications (Trade) Dose Ordered Sig/Opal Route Start Time Stop Time Status Last Admin (NS 1000 ml Inj) 1,000 ml @ 84 mls/hr [id number] IV 11/27/16 20:03 11/28/16 19:53 (NS Flush) 2 ml UNSCH PRN IV FLUSH 11/27/16 20:15 (NS Flush) 2 ml BID IV FLUSH 11/27/16 21:00 11/28/16 21:00 (Tylenol) 650 mg Q6H PRN PO 11/27/16 20:15 11/28/16 12:03 (Morphine Inj) 2 mg Q2H PRN IV 11/27/16 20:15 (Pepcid Inj) 20 mg Q12HR IV PUSH 11/27/16 21:00 11/29/16 08:18 (Zofran Inj) 4 mg Q6H PRN IV 11/27/16 20:15 (Reglan Inj) 10 mg Q6H PRN IV 11/27/16 20:15 (Colace) 100 mg BID PO 11/27/16 21:00 11/29/16 08:17 (Heparin Inj) 5,000 units Q8H SQ 11/27/16 22:00 11/29/16 06:00 Miscellaneous Information 1 Q361D XX 11/27/16 20:15 11/27/16 20:15 (Chlorhexidine 2% Cloth) 3 pack Taper DAILY@04 TOP 11/28/16 04:00 11/24/17 03:59 11/29/16 04:00 (Chlorhexidine 2% Cloth) 3 pack UNSCH PRN TOP 11/27/16 20:15 (Lanoxin) 0.125 mg DAILY PO 11/28/16 09:00 11/29/16 08:17 (Cozaar) 25 mg DAILY PO 11/28/16 09:00 11/29/16 08:18 (Lopressor) 100 mg BID PO 11/27/16 21:00 11/29/16 08:17 (Ferrous Sulfate) 325 mg DAILY PO 11/28/16 09:00 11/29/16 08:17 (Aspirin) 325 mg DAILY PO 11/28/16 09:00 11/29/16 08:17 (Lipitor) 80 mg DAILY PO 11/28/16 09:00 11/29/16 08:18 Allergies Allergies Coded Allergies Lisinopril (Verified Allergy, Unknown, 11/27/16) Exam I&O / VS 11/28/16 11/28/16 11/29/16 15:00 23:00 07:00 Intake Total 1040 ml 869 ml 865 ml Output Total 325 ml 300 ml 600 ml Balance 715 ml 569 ml 265 ml Intake Oral 120 ml 240 ml 80 ml IV Total 920 ml 629 ml 785 ml Output Urine Total 325 ml 300 ml 600 ml Stool Total 0 ml 0 ml # Bowel Movements 0 Vital Signs Date Time Temp Pulse Resp B/P Pulse Ox O2 Delivery O2 Flow Rate FiO2 11/29/16 06:00 115 11/29/16 04:00 108 11/29/16 04:00 98.5 108 12 148/81 99 11/29/16 02:00 96 11/29/16 00:00 98.6 109 18 172/103 99 11/29/16 00:00 109 11/28/16 22:00 87 11/28/16 20:00 98.3 78 18 182/95 99 11/28/16 20:00 78 11/28/16 20:00 Room Air 2.00 21 11/28/16 19:07 98 21 11/28/16 18:00 86 11/28/16 16:00 82 11/28/16 16:00 98.5 82 18 150/73 97 11/28/16 14:00 84 11/28/16 13:03 21 11/28/16 12:00 98.1 80 19 133/82 95 11/28/16 12:00 80 11/28/16 10:00 82 Objective Micro and Labs Laboratory Tests Test 11/27/16 11/27/16 11/28/16 14:08 14:25 04:21 Red Blood Count 4.19 MIL/MM3 3.99 MIL/MM3 (4.50-5.90) (4.50-5.90) Monocytes (%) (Auto) 16.4 % 15.4 % (0.0-8.0) (0.0-8.0) Eosinophils (%) (Auto) 5.7 % (0.0-4.0) Monocytes # (Auto) 1.1 TH/MM3 1.6 TH/MM3 (0-0.9) (0-0.9) Prothrombin Time 15.4 SEC (9.8-11.6) Bedside Glucose 132 MG/DL (60-95) Troponin I LESS THAN 0.02 NG/ML (0.02-0.05) Urine Mucus FEW /lpf (OCC) Platelet Count 143 TH/MM3 (150-450) Neutrophils (%) (Auto) 71.7 % (16.0-70.0) Chloride Level 109 MEQ/L (98-107) Estimat Glomerular Filtration 68 ML/MIN (>89) Rate Random Glucose 128 MG/DL (74-106) Calcium Level 7.9 MG/DL (8.5-10.1) Total Protein 6.1 GM/DL (6.4-8.2) Albumin 2.7 GM/DL (3.4-5.0) Sergio Nicole MD Nov 29, 2016 09:11
--- NOTE | 2016-11-29 12:04 | HHI.CCPN ---
Subjective Remarks/Hospital Course 81-year-old male who has a history of atrial fibrillation and hypertension presents having been walking to the bathroom seen normal by his family at 12:30 and at 1250 they heard a thump and found him on the bathroom floor having fallen. The patient is on Coumadin for chronic atrial fibrillation. He was found to have left arm and left leg weakness by EMS and a stroke alert was called. 11/28: Evaluated by IR and neurology. No tPA due to longstanding and current coumadin use for a-fib, Intracranial stenosis M2 branch has no clot. Presently treating with BP control. Swallow evaluation underway. Treatment with heparin and ASA. 11/29: No change in neurological function. Protects airway well. Objective Vital Signs Date Time Temp Pulse Resp B/P Pulse Ox O2 Delivery O2 Flow Rate FiO2 11/29/16 10:00 96 11/29/16 08:00 98.3 18 182/95 99 11/29/16 07:00 Room Air 11/28/16 20:00 2.00 21 Intake and Output 11/28/16 11/28/16 11/29/16 08:00 16:00 00:00 Intake Total 790 ml 1040 ml 869 ml Output Total 400 ml 325 ml 300 ml Balance 390 ml 715 ml 569 ml Result Diagram: 11/28/16 0421 11/28/16 0421 Imaging Last 24 hours Impressions Neck CTA 11/27/16 0000 Signed Impressions: Service Date/Time: Sunday, November 27, 2016 14:16 - CONCLUSION: Atherosclerotic calcific and soft plaquing initial segment of bilateral internal carotid arteries without stenosis on the left and there is high grade 90%% stenosis on the right. Ken Keith MD Head CTA 11/27/16 0000 Signed Impressions: Service Date/Time: Sunday, November 27, 2016 14:16 - CONCLUSION: Abnormal short segment distal right middle cerebral artery M1 segment over a 3 cm length with significant stenosis. Ken Keith MD Head CT 11/27/16 0000 Signed Impressions: Service Date/Time: Sunday, November 27, 2016 14:06 - CONCLUSION: Normal for age. No acute intracranial process. Ken Keith MD Cerebral Arteriogram 11/27/16 0000 Signed Impressions: Service Date/Time: Sunday, November 27, 2016 15:10 - CONCLUSION: 1. 50-60% % stenosis of the right ICA origin. 2. 50%% stenosis of a proximal M2 branch on the right without thrombus or occlusion. Good flow is seen through this segment. There is no embolus or thrombus present amenable to thrombectomy. Tu Gunderson Jr., MD Objective Remarks GENERAL: Well-nourished, well-developed patient. SKIN: Warm and dry. HEAD: Normocephalic. NECK: Supple, trachea midline. Airway widely patent. CARDIOVASCULAR: Irreg Irreg, no JVD. RESPIRATORY:Clear, no wheezes or crackles. No accessory muscle use. Good excursions. GASTROINTESTINAL: Abdomen soft, non-tender, nondistended. BS active. MUSCULOSKELETAL: No cyanosis, or edema. Well perfused. BACK: Nontender without obvious deformity. No CVA tenderness. NEURO: Significant left sided weakness persists. Protects airway. Tracks with eyes. A/P Problem List: (1) Acute right MCA stroke ICD Code: I63.511 Status: Acute Assessment and Plan Acute right MCA CVA - No intervention indicated per IR - Not a candidate for TPA due to chronic Coumadin use - Supportive care - Aspirin, heparin rx - Blood pressure control - PT and OT eval and treat - Speech evaluation done -> will start heart healthy diet. - Further the per neurology Hypertension - Losartan - Metoprolol - Cardene drip when necessary - SBP less than 160 Atrial fibrillation - Digoxin - Metoprolol - Resume Coumadin when okay with neurology DVT GI prophylaxis - Continue heparin and Pepcid Overall impression: Acute CVA. Stable respiratory and hemodynamic function. Respiratory and hemodynamics status acceptable. Adam Sims MD Nov 29, 2016 12:04
[2016-11-29] MEDS: ACETAMINOPHEN 325 MG TAB PO PRN (21:37)
[2016-11-30] VITALS (11 sets, daily range): BP systolic 105–171; BP diastolic 59–96; PULSE 66–110; RESP 10–20; TEMP 97–98.8; O2SAT 94–100
[2016-11-30] MEDS: hydrALAZINE HCL 20 MG/ML VIAL IV PUSH PRN (01:24)
[2016-11-30] MEDS: CHLORHEXIDINE GLUCONATE 2 % 1 PACK (2 CLOTHS) TOP SCH (03:19)
[2016-11-30] MEDS: SODIUM CHLOR 0.9% 1000 ML INJ 1,000 ML IV SCH (04:24)
[2016-11-30] MEDS: HEPARIN SODIUM - SQ 10,000 UNITS/ML VIAL SQ SCH (05:40)
[2016-11-30] MEDS: FERROUS SULFATE 325 MG (65 MG ELEMENTAL IRON) TAB PO SCH (08:08)
[2016-11-30] MEDS: DIGOXIN 0.125 MG TAB PO SCH (08:08)
[2016-11-30] MEDS: ASPIRIN 325 MG TAB PO SCH (08:09)
[2016-11-30] MEDS: ATORVASTATIN 80 MG TAB PO SCH (08:09)
[2016-11-30] MEDS: FAMOTIDINE 20 MG/2 ML VIAL IV PUSH SCH ×2 (08:09→20:51)
[2016-11-30] MEDS: METOPROLOL TARTRATE 100 MG TAB PO SCH ×2 (08:09→20:51)
[2016-11-30] MEDS: SODIUM CHLORIDE 0.9% FLUSH 5 ML FLUSH IV FLUSH SCH ×2 (08:09→20:51)
[2016-11-30] MEDS: DOCUSATE SODIUM 100 MG CAP PO SCH ×2 (08:09→20:51)
[2016-11-30] MEDS: LOSARTAN 25 MG TAB PO SCH (08:12)
--- NOTE | 2016-11-30 09:33 | HHI.PR ---
Subjective Remarks Follow-up acute right MCA CVA 11/30/16-patient seen and examined; alert and oriented x2; by the bedside. No acute event overnight per nurse report Objective Vitals Vital Signs Date Time Temp Pulse Resp B/P Pulse Ox O2 Delivery O2 Flow Rate FiO2 11/30/16 08:00 97.0 110 20 170/95 95 11/30/16 07:00 95 Room Air 11/30/16 06:00 100 11/30/16 04:00 99 11/30/16 04:00 97.7 98 15 148/81 95 11/30/16 02:00 98 11/30/16 00:00 97.9 91 18 171/96 96 11/30/16 00:00 72 11/29/16 22:00 88 11/29/16 21:24 99 11/29/16 20:00 75 11/29/16 20:00 98.8 80 18 173/101 96 11/29/16 19:00 97 Room Air 11/29/16 18:00 94 11/29/16 16:00 85 11/29/16 16:00 98.2 76 16 152/91 97 11/29/16 14:00 85 11/29/16 12:00 94 11/29/16 12:00 98.1 96 23 163/95 97 11/29/16 10:00 96 11/29/16 09:40 96 21 I/O 11/29/16 11/29/16 11/29/16 11/30/16 11/30/16 11/30/16 07:00 15:00 23:00 07:00 15:00 23:00 Intake Total 865 ml 1061 ml 785 ml 632 ml Output Total 600 ml 500 ml 500 ml 1075 ml Balance 265 ml 561 ml 285 ml -443 ml Intake Oral 80 ml 400 ml 100 ml IV Total 785 ml 661 ml 685 ml 632 ml Output Urine Total 600 ml 500 ml 500 ml 1075 ml Stool Total 0 ml # Bowel Movements 0 Result Diagram: 11/28/16 0421 11/28/16 0421 Imaging Last Impressions Neck CTA 11/27/16 0000 Signed Impressions: Service Date/Time: Sunday, November 27, 2016 14:16 - CONCLUSION: Atherosclerotic calcific and soft plaquing initial segment of bilateral internal carotid arteries without stenosis on the left and there is high grade 90%% stenosis on the right. Ken Keith MD Head CTA 11/27/16 0000 Signed Impressions: Service Date/Time: Sunday, November 27, 2016 14:16 - CONCLUSION: Abnormal short segment distal right middle cerebral artery M1 segment over a 3 cm length with significant stenosis. Ken Keith MD Head CT 11/27/16 0000 Signed Impressions: Service Date/Time: Sunday, November 27, 2016 14:06 - CONCLUSION: Normal for age. No acute intracranial process. Ken Keith MD Cerebral Arteriogram 11/27/16 0000 Signed Impressions: Service Date/Time: Sunday, November 27, 2016 15:10 - CONCLUSION: 1. 50-60% % stenosis of the right ICA origin. 2. 50%% stenosis of a proximal M2 branch on the right without thrombus or occlusion. Good flow is seen through this segment. There is no embolus or thrombus present amenable to thrombectomy. Tu Gunderson Jr., MD Objective Remarks GENERAL: NAD SKIN: Warm and dry. HEAD: Normocephalic. EYES: No scleral icterus. No injection or drainage. NECK: Supple, trachea midline. No JVD or lymphadenopathy. CARDIOVASCULAR: Regular rate and rhythm without murmurs, gallops, or rubs. RESPIRATORY: Breath sounds equal bilaterally. No accessory muscle use. GASTROINTESTINAL: Abdomen soft, non-tender, nondistended. MUSCULOSKELETAL: No cyanosis, or edema. Left upper extremity weakness BACK: Nontender without obvious deformity. No CVA tenderness. A/P Problem List: (1) Acute right MCA stroke ICD Code: I63.511 Status: Acute Assessment and Plan 81-year-old male with Acute right MCA CVA - No intervention indicated per IR - Not a candidate for TPA due to chronic Coumadin use - heparin rx however will resume Coumadin and discontinue aspirin on 12/01/16 -Continue statin - Blood pressure control - PT and OT eval and treat -Consult rehabilitation medicine, speech therapy -Check 2-D echo Hypertension-labile - Increase Losartan to 50 mg daily starting 12/01/16, given extra 25 mg losartan 1 now - Metoprolol Atrial fibrillation - Digoxin - Metoprolol - Resume Coumadin 11/30/16 Hyperlipidemia -Lipitor Impaired fasting glucose -Check A1c -Continue with insulin sliding scale DVT GI prophylaxis - Continue heparin and Pepcid Transfer to [facility] Discharge Planning Likely discharge to rehabilitation versus [facility] next 24 hours Celestine Kay MD Nov 30, 2016 09:33
[2016-11-30] MEDS ORDERED: LOSARTAN 25 MG TAB PO ONE (11:00)
[2016-11-30 11:58] LABS: INTERNATIONAL NORMALIZED RATIO 1.1 RATIO; PROTHROMBIN TIME - PATIENT 11.9 SEC (9.8-11.6)
[2016-11-30] MEDS: WARFARIN SOD 4 MG TAB PO SCH (16:53)
[2016-12-01] VITALS (11 sets, daily range): BP systolic 135–174; BP diastolic 72–99; PULSE 85–102; RESP 15–23; TEMP 98.1–98.4; O2SAT 93–98
[2016-12-01] MEDS: ACETAMINOPHEN 325 MG TAB PO PRN (00:41)
[2016-12-01] MEDS: CHLORHEXIDINE GLUCONATE 2 % 1 PACK (2 CLOTHS) TOP SCH (03:24)
[2016-12-01] MEDS: hydrALAZINE HCL 20 MG/ML VIAL IV PUSH PRN ×2 (03:29→21:34)
[2016-12-01 04:37] LABS: PROTHROMBIN TIME - PATIENT 11.4 SEC (9.8-11.6)
[2016-12-01] MEDS: SODIUM CHLORIDE 0.9% FLUSH 5 ML FLUSH IV FLUSH SCH ×2 (09:00→20:36)
[2016-12-01] MEDS: DIGOXIN 0.125 MG TAB PO SCH (09:17)
[2016-12-01] MEDS: LOSARTAN 50 MG TAB PO SCH (09:17)
[2016-12-01] MEDS: DOCUSATE SODIUM 100 MG CAP PO SCH ×2 (09:18→20:36)
[2016-12-01] MEDS: FERROUS SULFATE 325 MG (65 MG ELEMENTAL IRON) TAB PO SCH (09:18)
[2016-12-01] MEDS: ATORVASTATIN 80 MG TAB PO SCH (09:18)
[2016-12-01] MEDS: ASPIRIN 325 MG TAB PO SCH (09:18)
[2016-12-01] MEDS: METOPROLOL TARTRATE 100 MG TAB PO SCH ×2 (09:18→20:36)
[2016-12-01] MEDS: FAMOTIDINE 20 MG/2 ML VIAL IV PUSH SCH ×2 (09:19→20:36)
[2016-12-01 09:49] LABS: HEMOGLOBIN A1a 1.4 %; HEMOGLOBIN A1b 1.5 %; HEMOGLOBIN Ao 84.3 %; HEMOGLOBIN LA1C 2.2 %
--- NOTE | 2016-12-01 10:00 | HHI.PR ---
Subjective Remarks Follow-up acute right MCA CVA 11/30/16-patient seen and examined; alert and oriented x2; by the bedside. No acute event overnight per nurse report 12/01/16-patient seen and examined, he had one episode of fall yesterday however no headaches trauma. Currently stable and afebrile Objective Vitals Vital Signs Date Time Temp Pulse Resp B/P Pulse Ox O2 Delivery O2 Flow Rate FiO2 12/01/16 08:45 95 21 12/01/16 08:00 98.4 95 17 150/77 94 12/01/16 07:00 95 Room Air 12/01/16 06:00 101 12/01/16 04:00 89 12/01/16 04:00 98.1 90 19 174/75 96 12/01/16 02:00 88 12/01/16 00:00 98.1 94 23 151/72 96 12/01/16 00:00 92 11/30/16 22:00 89 11/30/16 20:58 96 11/30/16 20:00 87 11/30/16 20:00 98.8 79 13 133/69 95 11/30/16 19:00 95 Room Air 11/30/16 16:00 98.3 66 10 132/67 100 11/30/16 12:00 98.0 99 18 105/59 94 11/30/16 10:58 95 21 I/O 11/30/16 11/30/16 11/30/16 12/01/16 12/01/16 12/01/16 07:00 15:00 23:00 07:00 15:00 23:00 Intake Total 632 ml 300 ml 710 ml 715 ml Output Total 1075 ml 700 ml 250 ml 550 ml Balance -443 ml -400 ml 460 ml 165 ml Intake Oral 300 ml 100 ml 50 ml IV Total 632 ml 610 ml 665 ml Output Urine Total 1075 ml 700 ml 250 ml 550 ml # Bowel Movements 0 Result Diagram: 11/28/16 0421 11/28/16 042 Imaging Last Impressions Neck CTA 11/27/16 0000 Signed Impressions: Service Date/Time: Sunday, November 27, 2016 14:16 - CONCLUSION: Atherosclerotic calcific and soft plaquing initial segment of bilateral internal carotid arteries without stenosis on the left and there is high grade 90%% stenosis on the right. Ken Keith MD Head CTA 11/27/16 0000 Signed Impressions: Service Date/Time: Sunday, November 27, 2016 14:16 - CONCLUSION: Abnormal short segment distal right middle cerebral artery M1 segment over a 3 cm length with significant stenosis. Ken Keith MD Head CT 11/27/16 0000 Signed Impressions: Service Date/Time: Sunday, November 27, 2016 14:06 - CONCLUSION: Normal for age. No acute intracranial process. Ken Keith MD Cerebral Arteriogram 11/27/16 Signed Impressions: Service Date/Time: Sunday, November 27, 2016 15:10 - CONCLUSION: 1. 50-60% % stenosis of the right ICA origin. 2. 50%% stenosis of a proximal M2 branch on the right without thrombus or occlusion. Good flow is seen through this segment. There is no embolus or thrombus present amenable to thrombectomy. Tu Gunderson Jr., MD Objective Remarks GENERAL: NAD SKIN: Warm and dry. HEAD: Normocephalic. EYES: No scleral icterus. No injection or drainage. NECK: Supple, trachea midline. No JVD or lymphadenopathy. CARDIOVASCULAR: Regular rate and rhythm without murmurs, gallops, or rubs. RESPIRATORY: Breath sounds equal bilaterally. No accessory muscle use. GASTROINTESTINAL: Abdomen soft, non-tender, nondistended. MUSCULOSKELETAL: No cyanosis, or edema. Left upper extremity weakness BACK: Nontender without obvious deformity. No CVA tenderness. A/P Problem List: (1) Acute right MCA stroke ICD Code: I63.511 Status: Acute Assessment and Plan 81-year-old male with Acute right MCA CVA - No intervention indicated per IR - Not a candidate for TPA due to chronic Coumadin use - on Coumadin and d/c aspirin today 12/01/16 -Continue statin - Blood pressure control - PT and OT eval and treat -Consult rehabilitation medicine, speech therapy -Check 2-D echo Hypertension-labile - Losartan 50 mg daily starting 12/01/16 - Metoprolol Atrial fibrillation - Digoxin - Metoprolol - Coumadin Hyperlipidemia -Lipitor Impaired fasting glucose -Check A1c -Continue with insulin sliding scale DVT GI prophylaxis - Continue heparin and Pepcid Check UA and treat accordingly DVT prophylaxis: Coumadin Discharge Planning Likely discharge to rehabilitation versus [facility] next 24 hours Celestine Kay MD Dec 01, 2016 10:00
[2016-12-01] MEDS ORDERED: MAGNESIUM CITRATE SOLN 300 ML BTL PO ONE (12:00)
[2016-12-01 12:17] LABS: BACTERIA, URINE MANY /hpf; BLOOD, URINE MOD (NEG); COMMENT (UR) CULTURE INDICATED; CULTURE IF INDICATED CULTURE INDICATED; GLUCOSE,URINE TRACE mg/dL (NEG); KETONE, URINE NEG (NEG); MUCUS URINE MANY /lpf (OCC); NITRITE,URINE NEG (NEG); URINE COLOR YELLOW (YELLW/STRAW)
--- NOTE | 2016-12-01 14:02 | EC ---
Study Study Date:12/01/2016 STUDY CONCLUSIONS SUMMARY - Left ventricle: The cavity size was normal. Wall thickness was normal. Systolic function was normal. The estimated ejection fraction was in the range of 55% to 60%. Wall motion was normal; there were no regional wall motion abnormalities. - Aortic valve: Valve area: 1.68cm^2(VTI). Valve area: 1.51cm^2 (Vmax). If LV function is below 40, please consider prescribing an ACEI or ARB or document rationale for non-use. PROCEDURE DATA STUDY STATUS: Elective. Procedure: Transthoracic echocardiography. Image quality was poor. Scanning was performed from the parasternal, apical, and subcostal acoustic windows. Study completion: The patient tolerated the procedure well. Transthoracic echocardiography. M-mode, complete 2D, complete spectral Doppler, and color Doppler. Height: Height: 71in. Weight: Weight: 162.7lb. Body mass index: BMI: 22.7kg/m^2. Body surface area: BSA: 1.93m^2. Patient status: Inpatient. CARDIAC ANATOMY LEFT VENTRICLE: The cavity size was normal. Wall thickness was normal. Systolic function was normal. The estimated ejection fraction was in the range of 55% to 60%. Wall motion was normal; there were no regional wall motion abnormalities. AORTIC VALVE: Trileaflet; normal thickness leaflets. Doppler: Transvalvular velocity was within the normal range. There was no stenosis. No regurgitation. Valve area: 1.68cm^2(VTI). Indexed valve area: 0.87cm^2/m^2 (VTI). Valve area: 1.51cm^2 (Vmax). Indexed valve area: 0.78cm^2/m^2 (Vmax). Mean gradient: 5mm Hg (S). Peak gradient: 11mm Hg (S). AORTA: Aortic root: The aortic root was normal in size. MITRAL VALVE: Structurally normal valve. Doppler: Transvalvular velocity was within the normal range. There was no evidence for stenosis. Trace to mild regurgitation. Peak gradient: 3mm Hg (D). LEFT ATRIUM: The atrium was normal in size. RIGHT VENTRICLE: The cavity size was normal. Wall thickness was normal. PULMONIC VALVE: Doppler: Transvalvular velocity was within the normal range. There was no evidence for stenosis. No regurgitation. TRICUSPID VALVE: Structurally normal valve. Doppler: Transvalvular velocity was within the normal range. No regurgitation. PULMONARY ARTERY: The main pulmonary artery was normal-sized. Systolic pressure was within the normal range. RIGHT ATRIUM: The atrium was normal in size. PERICARDIUM: There was no pericardial effusion. SYSTEMIC VEINS: Inferior vena cava: The vessel was normal in size. Patient weight: 162.7lb _Ejection fraction:_ 65-75% _Fractional shortening:_ 32% up to 5Kg 5-11.5Kg 11.6-22.9Kg 23-45Kg 45-57Kg Aortic Root 7-13 <17 13-22 17-27 17-27 LA diam 6-13 <23 24-38 33-47 37-40 RVID 10-17 7-15 7-15 7-18 8-17 LVIDd 12-22 <32 24-38 33-47 37-40 LVPW 2-4 3-6 5-7 6-8 7-8 IVS 2-4 3-6 5-7 6-8 7-8 BASIC MEASUREMENTS ADULT NORMAL Left ventricle LV internal dimension, ED, chordal *36.8 mm 43-52 level, PLAX LV internal dimension, ES, chordal 26.6 mm 23-38 level, PLAX Fractional shortening, chordal level, *28 % >29 PLAX LV posterior wall thickness, ED 9.57 mm IVS/LVPW ratio, ED 0.86 <1.3 Ventricular septum Septal thickness, ED 8.21 mm Aorta Root diameter, ED 32 mm Left atrium Anterior-posterior dimension 29 mm Anterior-posterior dimension index 1.5 cm/m^2 <2.2 DOPPLER MEASUREMENTS ADULT NORMAL Main pulmonary artery Pressure, S 24 mm Hg =30 Aortic valve Peak velocity, S 163 cm/s Mean velocity, S 103 cm/s VTI, S 23.8 cm Mean gradient, S 5 mm Hg Peak gradient, S 11 mm Hg Valve area, VTI 1.68 cm^2 Valve area index, VTI 0.87 cm^2/m^2 Valve area, Vmax 1.51 cm^2 Valve area index, Vmax 0.78 cm^2/m^2 Mitral valve Peak E-wave velocity 92.8 cm/s Peak gradient, D 3 mm Hg Tricuspid valve Regurgitant peak velocity 216 cm/s Peak RV-RA gradient, S 19 mm Hg Maximal regurgitant velocity 216 cm/s Systemic veins Estimated CVP 5 mm Hg Right ventricle RV pressure, S 24 mm Hg <30 LEGEND: Mean values are shown as u=mean value. Asterisk (*) asher values outside specified normal range. Prepared and signed by Surya Sue [id number]
[2016-12-01] MEDS: WARFARIN SOD 4 MG TAB PO SCH (15:33)
[2016-12-01] MEDS ORDERED: WARFARIN SOD 4 MG TAB PO SCH (16:00)
[2016-12-02] VITALS (7 sets, daily range): BP systolic 136–138; BP diastolic 57–65; PULSE 73–106; RESP 12–29; TEMP 98.1–99.3; O2SAT 96–97
[2016-12-02] MEDS: MORPHINE SULFATE 4 MG/ML INJ IV PRN ×2 (00:31→04:23)
[2016-12-02] MEDS: CHLORHEXIDINE GLUCONATE 2 % 1 PACK (2 CLOTHS) TOP SCH (03:27)
[2016-12-02 04:40] LABS: PROTHROMBIN TIME - PATIENT 11.4 SEC (9.8-11.6)
[2016-12-02] MEDS: DOCUSATE SODIUM 100 MG CAP PO SCH (09:00)
[2016-12-02] MEDS: ASPIRIN EC 81 MG TABEC PO SCH ×2 (09:00→09:32)
--- NOTE | 2016-12-02 09:08 | HHI.PR ---
Subjective Remarks Follow-up acute right MCA CVA 11/30/16-patient seen and examined; alert and oriented x2; by the bedside. No acute event overnight per nurse report 12/01/16-patient seen and examined, he had one episode of fall yesterday however no headaches trauma. Currently stable and afebrile 12/02/16-patient seen and examined, positive for bowel movement, no acute event overnight. Vitals stable Objective Vitals Vital Signs Date Time Temp Pulse Resp B/P Pulse Ox O2 Delivery O2 Flow Rate FiO2 12/02/16 08:23 96 21 12/02/16 07:00 96 Room Air 12/02/16 06:00 103 12/02/16 04:00 98.9 84 29 138/64 96 12/02/16 04:00 87 12/02/16 02:00 106 12/02/16 00:00 87 12/02/16 00:00 99.3 73 19 136/57 97 12/01/16 22:00 102 12/01/16 20:12 98 12/01/16 20:00 86 12/01/16 20:00 98.1 93 16 155/99 96 12/01/16 19:00 98 Room Air 12/01/16 16:08 98.3 86 18 140/82 93 12/01/16 12:00 98.1 85 15 135/75 95 I/O 12/01/16 12/01/16 12/01/16 12/02/16 12/02/16 12/02/16 07:00 15:00 23:00 07:00 15:00 23:00 Intake Total 715 ml 810 ml 715 ml 645 ml Output Total 550 ml 700 ml 400 ml 1025 ml Balance 165 ml 110 ml 315 ml -380 ml Intake Oral 50 ml 120 ml 50 ml IV Total 665 ml 690 ml 665 ml 645 ml Output Urine Total 550 ml 700 ml 625 ml Stool Total 400 ml 400 ml # Bowel Movements 0 2 Result Diagram: 11/28/16 0421 11/28/16 0421 Imaging Last Impressions Neck CTA 11/27/16 0000 Signed Impressions: Service Date/Time: Sunday, November 27, 2016 14:16 - CONCLUSION: Atherosclerotic calcific and soft plaquing initial segment of bilateral internal carotid arteries without stenosis on the left and there is high grade 90%% stenosis on the right. Ken Stone, MD Head CTA 11/27/16 0000 Signed Impressions: Service Date/Time: Sunday, November 27, 2016 14:16 - CONCLUSION: Abnormal short segment distal right middle cerebral artery M1 segment over a 3 cm length with significant stenosis. Ken Keith MD Head CT 11/27/16 0000 Signed Impressions: Service Date/Time: Sunday, November 27, 2016 14:06 - CONCLUSION: Normal for age. No acute intracranial process. Ken Keith MD Cerebral Arteriogram 11/27/16 0000 Signed Impressions: Service Date/Time: Sunday, November 27, 2016 15:10 - CONCLUSION: 1. 50-60% % stenosis of the right ICA origin. 2. 50%% stenosis of a proximal M2 branch on the right without thrombus or occlusion. Good flow is seen through this segment. There is no embolus or thrombus present amenable to thrombectomy. Tu Gunderson Jr., MD Objective Remarks GENERAL: NAD SKIN: Warm and dry. HEAD: Normocephalic. EYES: No scleral icterus. No injection or drainage. NECK: Supple, trachea midline. No JVD or lymphadenopathy. CARDIOVASCULAR: Regular rate and rhythm without murmurs, gallops, or rubs. RESPIRATORY: Breath sounds equal bilaterally. No accessory muscle use. GASTROINTESTINAL: Abdomen soft, non-tender, nondistended. MUSCULOSKELETAL: No cyanosis, or edema. Left upper extremity weakness BACK: Nontender without obvious deformity. No CVA tenderness. Procedures None A/P Problem List: (1) Acute right MCA stroke ICD Code: I63.511 Status: Acute (2) UTI (urinary tract infection) ICD Code: N39.0 Status: Acute Assessment and Plan 81-year-old male with Acute right MCA CVA - No intervention indicated per IR - Not a candidate for TPA due to chronic Coumadin use - on Coumadin and aspirin -Continue statin - Blood pressure control - PT and OT eval and treat -Consult rehabilitation medicine, speech therapy -Check 2-D echo Hypertension-labile - Losartan 50 mg daily - Metoprolol Atrial fibrillation - Digoxin - Metoprolol - Coumadin Hyperlipidemia -Lipitor Impaired fasting glucose: A1c 5.7, therefore discontinue sliding scale. Less than medication and repeat in 3 months HgA1C DVT GI prophylaxis - Continue heparin and Pepcid UTI: Start Start Cipro 500mg BID pending Urine Culture DVT prophylaxis: Coumadin Discharge Planning Discharged to [facility] today 12/02/16 Celestine Kay MD Dec 02, 2016 09:08
[2016-12-02] MEDS ORDERED: ACET325T PO (09:11)
[2016-12-02] MEDS ORDERED: COZA50TA PO (09:11)
[2016-12-02] MEDS ORDERED: LIPI80TA PO (09:11)
[2016-12-02] MEDS ORDERED: ASPI81TA11 PO (09:11)
[2016-12-02] MEDS ORDERED: CIPR-9 PO (09:13)
[2016-12-02] MEDS ORDERED: LACTCHW3 CHEW (09:13)
--- NOTE | 2016-12-02 09:16 | HHI.DS ---
Discharge Summary Admission Date Nov 27, 2016 at 15:43 Discharge Date: Dec 02, 2016 Admitting Diagnosis stroke (1) Acute right MCA stroke ICD Code: I63.511 (2) UTI (urinary tract infection) ICD Code: N39.0 Procedures None Brief History - From Admission 81-year-old male who has a history of atrial fibrillation and hypertension presents having been walking to the bathroom seen normal by his family at 12:30 and at 1250 they heard a thump and found him on the bathroom floor having fallen. The patient is on Coumadin for chronic atrial fibrillation. He was found to have left arm and left leg weakness by EMS and a stroke alert was called. CBC/BMP: 11/28/16 0421 11/28/16 0421 Significant Findings Laboratory Tests Test 11/30/16 12/01/16 11:40 11:08 Prothrombin Time 11.9 SEC (9.8-11.6) Urine Turbidity CLOUDY (CLEAR) Urine Protein 30 mg/dL (NEG-TRACE) Urine Occult Blood MOD (NEG) Urine Leukocyte Esterase LARGE (NEG) Urine RBC 142 /hpf (0-3) Urine WBC Clumps FEW (NONE) Urine Bacteria MANY /hpf (NONE) Urine Mucus MANY /lpf (OCC) Imaging Last Impressions Neck CTA 11/27/16 0000 Signed Impressions: Service Date/Time: Sunday, November 27, 2016 14:16 - CONCLUSION: Atherosclerotic calcific and soft plaquing initial segment of bilateral internal carotid arteries without stenosis on the left and there is high grade 90%% stenosis on the right. Ken Keith MD Head CTA 11/27/16 0000 Signed Impressions: Service Date/Time: Sunday, November 27, 2016 14:16 - CONCLUSION: Abnormal short segment distal right middle cerebral artery M1 segment over a 3 cm length with significant stenosis. Ken Keith MD Head CT 11/27/16 0000 Signed Impressions: Service Date/Time: Sunday, November 27, 2016 14:06 - CONCLUSION: Normal for age. No acute intracranial process. Ken Keith MD Cerebral Arteriogram 11/27/16 0000 Signed Impressions: Service Date/Time: Sunday, November 27, 2016 15:10 - CONCLUSION: 1. 50-60% % stenosis of the right ICA origin. 2. 50%% stenosis of a proximal M2 branch on the right without thrombus or occlusion. Good flow is seen through this segment. There is no embolus or thrombus present amenable to thrombectomy. Tu Gunderson Jr., MD PE at Discharge GENERAL: NAD SKIN: Warm and dry. HEAD: Normocephalic. EYES: No scleral icterus. No injection or drainage. NECK: Supple, trachea midline. No JVD or lymphadenopathy. CARDIOVASCULAR: Regular rate and rhythm without murmurs, gallops, or rubs. RESPIRATORY: Breath sounds equal bilaterally. No accessory muscle use. GASTROINTESTINAL: Abdomen soft, non-tender, nondistended. MUSCULOSKELETAL: No cyanosis, or edema. Left upper extremity weakness BACK: Nontender without obvious deformity. No CVA tenderness. Hospital Course Patient admitted with acute right MCA CVA for which neurology was consulted, however patient was not a candidate at a time for TPA due to chronic Coumadin use therefore there was no intervention for IR. He was initially allowed permissive hypertension and started on aspirin and continued on Lipitor. PT/OT/ speech therapy well consulted. Permissive hypertension was subsequently discontinue and patient's medications were resumed including Lopressor and losartan, which was increased to 50 mg daily secondary to labile BP. Coumadin was subsequently resumed and patient continued on digoxin secondary to history of atrial fibrillation. He was diagnosed with UTI for which Cipro 500 mg by mouth twice a day was started. Vitals remained stable and his A1c was 5.7. DVT and GI prophylaxis were provided. Pt Condition on Discharge: Fair Discharge Disposition: Rehab Inpatient Discharge Time: > 30 minutes Discharge Instructions DIET: Follow Instructions for: Heart Healthy Diet Speech Therapy-Diet Recommends: Honey Thickened Liquids, Pureed Activities you can perform: Regular-No Restrictions Follow up Referrals: Neurology PCP Follow-up - 2-3 Days New Orders: PT/INR - Daily New Medications: Lactobacillus Acidophilus (Lactinex) 1 Chew 1 TAB CHEW DAILY Nutritional Supplement #30 Ref 0 TAB Acetaminophen (Acetaminophen) 325 Mg Tab 650 MG PO Q6H PRN PAIN 1-10 AND/OR FEVER >101F #[address] (Aspirin EC) 81 Mg Tabdr 81 MG PO DAILY Prevent Blood Clot #10 TAB Atorvastatin (Lipitor) 80 Mg Tab 80 MG PO DAILY Cholesterol Management #30 TAB Ciprofloxacin (Cipro) 500 Mg Tab 500 MG PO Q12HR Infection #14 TAB Losartan (Cozaar) 50 Mg Tab 50 MG PO DAILY Blood Pressure Management #30 TAB Continued Medications: Digoxin (Digoxin) 0.125 Mg Tab 0.125 MG PO DAILY Regulate Heart Beat #30 Ref 0 TAB Ferrous Sulfate (Iron) 50 Mg Tab 65 MG PO DAILY Nutritional Supplement Ref 0 TAB Metoprolol Tartrate (Metoprolol Tartrate) 100 Mg Tab 100 MG PO BID #60 Ref 0 TAB Warfarin (Warfarin) 4 Mg Tab 4 MG PO DAILY Blood Clot Prevention #30 Ref 0 TAB Discontinued Medications: Losartan (Losartan) 25 Mg Tab 25 MG PO DAILY Blood Pressure Management #30 Ref 0 TAB Celestine Kay MD Dec 02, 2016 09:16
[2016-12-02] MEDS: ACETAMINOPHEN 325 MG TAB PO PRN (09:30)
[2016-12-02] MEDS ORDERED: CIPROFLOXACIN 500 MG TAB PO SCH ×2 (09:30→11:00)
[2016-12-02] MEDS: DIGOXIN 0.125 MG TAB PO SCH (09:31)
[2016-12-02] MEDS: ATORVASTATIN 80 MG TAB PO SCH (09:31)
[2016-12-02] MEDS: LOSARTAN 50 MG TAB PO SCH (09:31)
[2016-12-02] MEDS: METOPROLOL TARTRATE 100 MG TAB PO SCH (09:31)
[2016-12-02] MEDS: SODIUM CHLORIDE 0.9% FLUSH 5 ML FLUSH IV FLUSH SCH (09:32)
[2016-12-02] MEDS ORDERED: FAMOTIDINE 20 MG/2 ML VIAL IV PUSH SCH (15:00)
[2016-12-02] MEDS ORDERED: WARFARIN SOD 1 MG TAB PO SCH (16:00)
[2016-12-02] MEDS ORDERED: FERROUS SULFATE 325 MG (65 MG ELEMENTAL IRON) TAB PO SCH (16:00)
[2016-12-03] MEDS ORDERED: COZA50TA PO (16:19)
[2016-12-25] MEDS ORDERED: WHEEMIS3 (15:38)
[2016-12-25] MEDS ORDERED: COMMODE 3-IN-11 MIS (15:38)
[2016-12-25] MEDS ORDERED: QUAD CANE/SMALL1 MI1 (15:38)
[2016-12-30] MEDS ORDERED: ASPI81TA11 PO (08:35)
[2016-12-30] MEDS ORDERED: HYDR-3516 PO (08:35)
[2016-12-30] MEDS ORDERED: PANT40TA3 PO (08:35)
[2016-12-30] MEDS ORDERED: METO25TA3 PO (08:35)
[2016-12-30] MEDS ORDERED: LIPI80TA PO (08:35)
[2016-12-30] MEDS ORDERED: AMLO5 PO (08:35)
[2016-12-30] MEDS ORDERED: DIGO0.12 PO (08:35)
[2017-01-29] MEDS ORDERED: GABA100C4 PO (15:00)
[2017-02-26] MEDS ORDERED: GABA300C5 PO (13:23)
[2017-02-26] MEDS ORDERED: PROZ20CA11 PO (13:23)
== END 2016-12-02 12:06 | DRG 65 ==
LOC: NEPE 14:05 → NEDA 15:43 → N03A 17:04
PROVIDERS: ADMIT Hospitalist; ATTEND Hospitalist
PROC: B3131ZZ Fluoroscopy of Right Common Carotid Artery using Low Osmolar Contrast (ICD-10-PCS; principal; 2016-11-27)
PROC: B3161ZZ Fluoroscopy of Right Internal Carotid Artery using Low Osmolar Contrast (ICD-10-PCS; 2016-11-27)
DX: I63.511 Cerebral infarction due to unspecified occlusion or stenosis of right middle cerebral artery (principal); N39.0 Urinary tract infection, site not specified; G81.94 Hemiplegia, unspecified affecting left nondominant side; I48.91 Unspecified atrial fibrillation; I65.21 Occlusion and stenosis of right carotid artery; I10 Essential (primary) hypertension; E78.5 Hyperlipidemia, unspecified; R47.01 Aphasia; R47.1 Dysarthria and anarthria; Z79.01 Long term (current) use of anticoagulants; R73.01 Impaired fasting glucose; S00.83XA Contusion of other part of head, initial encounter; W19.XXXA Unspecified fall, initial encounter; H11.32 Conjunctival hemorrhage, left eye; Y92.002 Bathroom of unspecified non-institutional (private) residence as the place of occurrence of the external cause
CPT/HCPCS: 36217; 36224; 36227; 70450; 70496; 70498; 76937; 80053; 80307; 81001; 82435; 82550; 82565; 82947; 82948; 83036; 84132; 84295; 84484; 84520; 85025; 85384; 85610; 85730; 86850; 86900; 86901; 87077; 87086; 87186; 87641; 93005; 93306; 99152; 99153; C1760; C1769; C1887; C1894; G0269; J0360; J1644; J2250; J2270; J2765; J3010; J7030; P9612; Q9967

== ENCOUNTER 2016-12-03 16:15 | Inpatient (IN) | payer MEDICARE, BC ==
[~2016-12-03 16:15] MED LIST: ACET325T PO; ASPI81TA11 PO; CIPR-9 PO; COZA50TA PO; DIGO0.12 PO; FERR1TAB58 PO; LACTCHW3 CHEW; LIPI80TA PO; METO100T PO; WARF-20 PO
[2016-12-03] MEDS ORDERED: COZA50TA PO (16:19)
[2016-12-03] MEDS: LABETALOL HCL 100 MG/20 ML VIAL IV PRN ×2 (16:40→19:00)
[2016-12-03 16:45] VITALS: PULSE 103
[2016-12-03] MEDS ORDERED: LABETALOL HCL 100 MG/20 ML VIAL ONE (16:53)
[2016-12-03] MEDS ORDERED: SODIUM CHLOR 0.9% 1000 ML INJ 1,000 ML IV SCH (17:03)
[2016-12-03] MEDS ORDERED: CHLORHEXIDINE GLUCONATE 2 % 1 PACK (2 CLOTHS) TOP PRN (17:15)
[2016-12-03] MEDS ORDERED: MISCELLANEOUS NURSING INFORMATION XX SCH (17:15)
[2016-12-03] MEDS ORDERED: ONDANSETRON HCL 4 MG/2 ML VIAL IV PRN (17:15)
[2016-12-03] MEDS ORDERED: SENNOSIDES 8.6 MG TAB PO PRN (17:15)
[2016-12-03] MEDS ORDERED: SODIUM CHLORIDE 0.9% FLUSH 5 ML FLUSH IV FLUSH PRN (17:15)
[2016-12-03] MEDS ORDERED: METOCLOPRAMIDE HCL 10 MG/2 ML VIAL IV PRN (17:15)
[2016-12-03] MEDS ORDERED: RESP: ALBUTEROL 2.5 MG/IPRATROPIUM 0.5 MG NEB (PRN) INH (17:15)
--- NOTE | 2016-12-03 17:35 | HHI.HP ---
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 Striking his left for head left arm and left knee. Family noted the patient had left upper and lower extremity weakness as well as difficulties with speech and he was brought to the emergency room on November as a stroke alert. Initial CT scan was negative for stroke or hemorrhage, neurology Dr. Laura Nicole was consulted the patient was not a candidate for TPA due to an elevated PT R on Coumadin. Subsequent CTA of the carotid showed 90% stenosis at the right internal carotid artery and no significant stenosis of the left internal carotid artery. 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 The patient was started on permissive hypertension and monitored in critical care is also noted on admission the patient had a urinary tract infection and he was started on Cipro by mouth. The patient started therapies including speech therapy initial swallows evaluation with dysphasia the patient has progressed or mechanical soft diet with honey thick liquids. In physical therapy therapy the patient is total assist he has decreased sitting balance does not progressed beyond bed mobility. Patient was accepted to rehabilitation on 12/02/16. He has been complaining of a headache for the last few days. Head CT done today revealed hemorrhagic conversion in area of prior stroke with some mass effect for which Dr. Avendano from neurosurgery was contacted by Dr. Blair from [facility] and advised transferring patient to [facility]. Patient was accepted for admission by critical care medicine service and transferred to [facility] where I evaluated him immediately on arrival. At the time of my evaluation patient is awake and alert following commands. He was complaining of a headache which he rated 3 out of 10 in intensity. He denied any visual blurring or double vision denied any nausea, abdominal pain. He knew he was at [facility] and could converse with me appropriately and give me details regarding his initial presentation with a stroke and knew the date month and year. Past Family Social History Allergies: Coded Allergies: Lisinopril (Verified Allergy, Unknown, 11/27/16) Past Medical History Hypertension Atrial fibrillation ALLERGIES: LISINOPRIL MEDS ON REHAB Acetaminophen (Tylenol) 650 mg Q6H PRN PO PAIN 1-10 AND/OR FEVER >101F Last administered on 12/03/16 08:03; Start 12/02/16 at 14:15 Aspirin (Ecotrin Ec) 81 mg DAILY PO Last administered on 12/03/16 08:04; Start 12/03/16 at 09:00 Atorvastatin Calcium (Lipitor) 80 mg DAILY PO Last administered on 12/03/16 08 :04; Start 12/03/16 at 09:00 Ciprofloxacin (Cipro) 500 mg Q12HR PO Last administered on 12/03/16 08:04; Start 12/02/16 at 21:00; Stop 12/09/16 at 20:59 Digoxin (Lanoxin) 0.125 mg DAILY PO Last administered on 12/03/16 08:04; Start 12/03/16 at 09:00 Ferrous Sulfate (Ferrous Sulfate) 325 mg DAILY@1300 PO Last administered on 12:16; Start 12/03/16 at 13:00 Hydralazine HCl 25 mg 25 mg Q8HR PRN PO SBP>160, DBP>90; Start 12/03/16 at 10: 00 Lactobacillus Acidophilus (Lactinex) 1 tab DAILY PO Last administered on 08:04; Start 12/03/16 at 09:00 Losartan Potassium (Cozaar) 100 mg DAILY PO ; Start 12/04/16 at 09:00 Metoprolol Tartrate (Lopressor) 100 mg BID PO Last administered on 12/03/16 08 :04; Start 12/02/16 at 21:00 Ondansetron HCl (Zofran Odt) 4 mg Q6H PRN PO NAUSEA OR VOMITING; Start at 14:15 Patient Medication Teaching (Coumadin Booklet) 1 ONCE ONCE XX Last administered on 12/02/16 16:18; Start 12/02/16 at 16:00; Stop 12/02/16 at 16:01 ; Status DC Pharmacy Profile Note (Coumadin Consult Pharmacy) 0 ml @ 0 mls/hr UNSCH OTHER ; Start 12/03/16 at 10:30 Senna/Docusate Sodium (Jennie-Colace) 1 tab HS PO Last administered on 12/02/16 21:03; Start 12/02/16 at 21:00 Warfarin Sodium (Coumadin) 4 mg DAILY@1600 PO Last administered on 12/02/16 16 :19; Start 12/02/16 at 16:00 Review of Systems ROS per HPI Physical Exam Physical Exam HEENT/Neuro: No pallor or icterus, tongue moist, LAURENCE, Awake alert oriented 3 , left hemiparalysis. Grade 1-2 power in left upper extremity, grade 4 power left lower extremity, grade 5 power in the right upper and lower extremity. Pupils 3 mm bilaterally reacting actively to light. 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 fib Hyperlipidemia Plan: Neuro: Hold Coumadin. Vitamin K 10 mg subcutaneous S Michael now. INR this morning was 1.1. Neurosurgery consulted for hemorrhagic conversion and ischemic stroke. Consult neurology. Continue neuro checks. Repeat head CT per neurosurgery. Cardiovascular: Continue metoprolol 100 mg by mouth twice a day. Labetalol 20 mg IV every 2 hourly when necessary for systolic blood pressure greater than 150 mmHg. Continue losartan Pulmonary: Supplemental O2 as needed. Bronchodilators when necessary. Currently protecting airway. GI/liver: Nothing by mouth till evaluation by neurosurgery. Patient was tolerating by mouth diet on rehabilitation which we will continue if okay with neurosurgery. Renal/: Genital hydration, follow urine output, monitor and replete electro lites, follow BUN/creatinine. ID: Continue ciprofloxacin for UTI Endocrine: Watch for hyperglycemia, SSI for glycemic control if needed. Heme: Follow CBC. Stop Coumadin in view of hemorrhagic conversion and ischemic stroke. Vitamin K 10 mg subcutaneous as he ordered. INR 1.1 this morning. Prophylaxis: PPI/SCDs. Subcutaneous heparin when okay with neurosurgery. Further recommendations per neurosurgery/ neurology. Discussed with patient's earlier. Time spent on critical care excluding procedures 50 minutes Ridge Jacobsen MD Dec 03, 2016 17:35
[2016-12-03] MEDS ORDERED: PHYTONADIONE 10 MG/ML VIAL SQ ONE (18:00)
[2016-12-03] MEDS: MORPHINE SULFATE 4 MG/ML INJ IV PRN (18:29)
[2016-12-03 18:36] LABS: AUTOMATED NEUTROPHIL # 10.6 TH/MM3 (1.8-7.7); BASOPHIL # 0.1 TH/MM3 (0-0.2); BASOPHIL % 0.5 % (0.0-2.0); EOSINOPHIL # 0.3 TH/MM3 (0-0.4); EOSINOPHIL % 1.9 % (0.0-4.0); HEMATOCRIT 39.3 % (39.0-51.0); LYMPH % 7.8 % (9.0-44.0); LYMPHOCYTE # 1.1 TH/MM3 (1.0-4.8); MEAN CELL VOLUME 98.6 FL (80.0-100.0); MEAN CORPUSCULAR HEMOGLOBIN 32.5 PG (27.0-34.0); MONO % 16.2 % (0.0-8.0); NEUT % 73.6 % (16.0-70.0); PLATELET COUNT 150 TH/MM3 (150-450); RED BLOOD COUNT 3.99 MIL/MM3 (4.50-5.90); RED CELL DISTRIBUTION WIDTH 15.5 % (11.6-17.2); WHITE BLOOD COUNT 14.4 TH/MM3 (4.0-11.0)
[2016-12-03 18:37] LABS: HEMO FLAGS AUTO DIFF
[2016-12-03 18:49] LABS: APTT (PATIENT) 24.5 SEC (24.3-30.1); INTERNATIONAL NORMALIZED RATIO 1.2 RATIO; PROTHROMBIN TIME - PATIENT 13.6 SEC (9.8-11.6)
[2016-12-03 18:57] LABS: ANION GAP 7 MEQ/L (5-15); AST (GOT) 31 U/L (15-37); BICARBONATE 26.8 MEQ/L (21.0-32.0); BLOOD UREA NITROGEN 14 MG/DL (7-18); CHLORIDE 101 MEQ/L (98-107); GLOMERULAR FILTRATION RATE 75 ML/MIN (>89); MAGNESIUM 1.9 MG/DL (1.5-2.5); POTASSIUM 3.9 MEQ/L (3.5-5.1); SODIUM (NA) 135 MEQ/L (136-145)
[2016-12-03 19:00] VITALS: PULSE 109
[2016-12-03 19:00] LABS: ALKALINE PHOSPHATASE 73 U/L (45-117); ALT (GPT) 29 U/L (12-78); TOTAL BILIRUBIN ADULT 0.8 MG/DL (0.2-1.0)
[2016-12-03 19:12] LABS: BANDS 9 % (0-6); NEUTROPHIL # MANUAL DIFF 10.9 TH/MM3 (1.8-7.7); OVALOCYTES 1+ (NORMAL); PLATELET ESTIMATE SMEAR NORMAL (NORMAL); PLATELET MORPHOLOGY NORMAL (NORMAL); POLYS (SEG NEUTROPHILS) 67 % (16-70); SCAN/DIFF FINAL DIFF MANUAL; WBC DIFF SAMPLE 100
[2016-12-03] MEDS ORDERED: niCARdipine INJ 25 MG in SODIUM CHLOR 0.9% 250 ML INJ 250 ML IV SCH (19:45)
[2016-12-03 20:00] VITALS: BP 169/90; PULSE 109; RESP 20; TEMP 98.1; O2SAT 97
[2016-12-03] MEDS: METOPROLOL TARTRATE 5 MG/5 ML VIAL IV PUSH SCH (20:00)
[2016-12-03] MEDS: ACETAMINOPHEN/HYDROcodone 325 MG/5 MG TAB PO PRN (20:39)
[2016-12-03] MEDS: METOPROLOL TARTRATE 100 MG TAB PO SCH (20:39)
[2016-12-03] MEDS: DOCUSATE SODIUM 100 MG CAP PO SCH (20:39)
--- NOTE | 2016-12-03 20:49 | PD.CONS ---
HPI Service Neurosurgery Consult Requested By Critical care medicine Reason for Consult Hemorrhagic CVA Primary Care Physician Unknown History of Present Illness Mr. Workman is a pleasant 81-year-old gentleman who is interviewed and examined in the presence of his . The patient states that he fell in his bathroom at home on 11/27/16 without loss of consciousness. His family found him in the bathroom, awake, with left-sided weakness. The patient underwent a stroke workup in the emergency room, and was not felt to be a candidate for TPA due to chronic Coumadin use, and was not felt to be a candidate for treatment per interventional radiology. Patient was initially admitted to the intensive surgical care unit. He was maintained on medications for hypertension and chronic atrial fibrillation. He was subsequently discharged to inpatient rehabilitation on 12/02/16. The patient's family states that for the past 3 days , he has experienced progressive headache. His feels that his speech has improved since the initial CVA, but he remains with some speech hesitancy and mild dysarthria. He states that he has been unable to ambulate since the CVA, and left-sided weakness and loss of coordination have been stable since the initial onset. Due to progressive headache, a CT scan of the head was obtained today, on 12/03/16, which has revealed vasogenic edema as well as a component of subacute hematoma in the right frontal region extending to the head of the caudate, with partial effacement of the frontal horn of the right lateral ventricle, but no midline shift. Due to the new CT scan had findings, the patient was readmitted to the intensive surgical care unit. No seizure activity reported. Review of Systems Constitutional: DENIES: Fever, Dizziness Eyes: DENIES: Blurred vision, Diplopia Ears, nose, mouth, throat: DENIES: Hearing loss Respiratory: DENIES: Cough, Shortness of breath Cardiovascular: DENIES: Chest pain, Palpitations Gastrointestinal: DENIES: Abdominal pain, Nausea Musculoskeletal: DENIES: Joint pain, Muscle aches Hematologic/lymphatic: DENIES: Bruising Neurologic: COMPLAINS OF: Abnormal gait, Headache, Localized weakness, Speech Problems, Poor Balance, DENIES: Paresthesias, Seizures, Tremor Psychiatric: COMPLAINS OF: Confusion, DENIES: Anxiety Past Family Social History Allergies: Coded Allergies: Lisinopril (Verified Allergy, Unknown, 12/03/16) Past Medical History History of chronic atrial fibrillation-previously on Coumadin Hypertension Hypercholesterolemia Recent CVA Past Surgical History No major surgeries reported Reported Medications Reported Meds & Active Scripts Active Cozaar (Losartan Potassium) 50 Mg Tab 100 Mg PO DAILY 30 Days Cipro (Ciprofloxacin HCl) 500 Mg Tab 500 Mg PO Q12HR Lipitor (Atorvastatin Calcium) 80 Mg Tab 80 Mg PO DAILY Reported Iron (Ferrous Sulfate) 50 Mg Tab 65 Mg PO DAILY Digoxin 0.125 Mg Tab 0.125 Mg PO DAILY Metoprolol Tartrate 100 Mg Tab 100 Mg PO BID Family History Negative for diabetes, hypertension, CVA, cardiac disease Social History Does not smoke cigarettes, drinks alcohol occasionally Physical Exam Vital Signs Vital Signs Date Time Temp Pulse Resp B/P Pulse Ox O2 Delivery O2 Flow Rate FiO2 12/03/16 16:45 103 Physical Exam GENERAL: This is a well-nourished, well-developed patient, in no apparent distress. SKIN: No rashes, ecchymoses or lesions. HEAD: No lacerations or contusions EYES: Sclerae are clear and nonicteric. No periorbital edema or ecchymosis ENT: No CSF otorrhea or rhinorrhea. No facial fracture or deformity NECK: Supple, nontender, no meningeal signs. CARDIOVASCULAR: Irregular rhythm. RESPIRATORY: Regular, nonlabored, no wheezing. No cough. GASTROINTESTINAL: Abdomen soft, non-tender, nondistended. No hepato-splenomegaly , or palpable masses. No guarding. MUSCULOSKELETAL: Extremities without cyanosis, or edema. No joint tenderness, effusion, or edema noted. No calf tenderness. Posterior tibial pulse 2+ bilateral NEUROLOGICAL: Awake and alert Oriented X 3 Speech is moderately slow and hesitant, mild dysarthria Conversant and appropriate Follow simple commands well Answers simple questions appropriately with a few words Reasonable judgment and insight Recent and remote memory are moderately impaired No evidence of anxiety or depression Pupils are equal and reactive to accommodation. Extra-ocular movements, visual black to confrontation, palate, sternocleidomastoid testing, hearing to finger rub testing, and bilateral shoulder shrug are all intact. He has mild left facial paresis. His tongue protrudes slightly towards the left Sensation is intact to light touch in all extremities Strength normal major flexion and extension groups the right upper and lower extremities Left upper extremity motor testing reveals approximately 3+/5 grasp, with 1-2 deltoids and biceps, 3/5 triceps, and mostly absent hand intrinsics. Left lower extremity motor testing reveals mostly 3/5 proximal and 4-5/5 distal strength Dionna's absent bilaterally No ankle clonus Plantar responses absent bilateral Fine motor movements intact right upper extremity, significantly impaired left upper extremity due to left hand weakness Laboratory Laboratory Tests Test 12/03/16 18:24 White Blood Count 14.4 Red Blood Count 3.99 Hemoglobin 13.0 Hematocrit 39.3 Mean Corpuscular Volume 98.6 Mean Corpuscular Hemoglobin 32.5 Mean Corpuscular Hemoglobin 33.0 Concent Red Cell Distribution Width 15.5 Platelet Count 150 Mean Platelet Volume 8.7 Neutrophils (%) (Auto) 73.6 Lymphocytes (%) (Auto) 7.8 Monocytes (%) (Auto) 16.2 Eosinophils (%) (Auto) 1.9 Basophils (%) (Auto) 0.5 Neutrophils # (Auto) 10.6 Lymphocytes # (Auto) 1.1 Monocytes # (Auto) 2.3 Eosinophils # (Auto) 0.3 Basophils # (Auto) 0.1 CBC Comment AUTO DIFF Differential Total Cells 100 Counted Neutrophils % (Manual) 67 Band Neutrophils % 9 Lymphocytes % 7 Monocytes % 17 Neutrophils # (Manual) 10.9 Differential Comment FINAL DIFF MANUAL Platelet Estimate NORMAL Platelet Morphology Comment NORMAL Ovalocytes 1+ Prothrombin Time 13.6 Prothromb Time International 1.2 Ratio Activated Partial 24.5 Thromboplast Time Sodium Level 135 Potassium Level 3.9 Chloride Level 101 Carbon Dioxide Level 26.8 Anion Gap 7 Blood Urea Nitrogen 14 Creatinine 0.97 Estimat Glomerular Filtration 75 Rate Random Glucose 103 Calcium Level 8.0 Phosphorus Level 2.6 Magnesium Level 1.9 Total Bilirubin 0.8 Aspartate Amino Transf 31 (AST/SGOT) Alanine Aminotransferase 29 (ALT/SGPT) Alkaline Phosphatase 73 Total Protein 5.9 Albumin 2.3 Result Diagram: 12/03/16182312/03/161823 Imaging 12/03/16 CT scan head and 11/27/16 CT scan had images reviewed by the undersigned with findings as noted above. Assessment and Plan Assessment and Plan Impression: 1. Probable right frontal lobe-basal ganglia delayed hemorrhagic CVA with relatively mild mass effect. Patient's neurologic exam appears reasonably stable on the basis of history obtained from the patient and his , as well as review of recent records. 2. History of atrial fibrillation 3. Hypertension Plan: Findings were discussed at length with the patient and his . He has been admitted to the intensive surgical care unit for close observation and neurologic checks. Blood pressure remains somewhat high, systolic in the 170s. Additional as needed medications ordered. CT scan head in the a.m. Non-chemical DVT prophylaxis The CT scan head of 12/03/16 appears to reveal a subacute hemorrhage, likely occurring a few days ago. If the follow-up CT scan head in the a.m. is stable, he should be able to be transferred to the floor, and resume rehabilitation when otherwise medically cleared and hypertension adequately controlled. Valdez Cruz MD Dec 03, 2016 20:49
[2016-12-03] MEDS: SODIUM CHLORIDE 0.9% FLUSH 5 ML FLUSH IV FLUSH SCH (21:00)
[2016-12-03] MEDS: CIPROFLOXACIN 500 MG TAB PO SCH (22:23)
[2016-12-03 23:00] VITALS: BP 116/63; PULSE 95; RESP 20; TEMP 98.4; O2SAT 97
[2016-12-04] VITALS (10 sets, daily range): BP systolic 113–164; BP diastolic 69–86; PULSE 81–93; RESP 12–19; TEMP 97.8–98.6; O2SAT 94–97
[2016-12-04] MEDS: MORPHINE SULFATE 4 MG/ML INJ IV PRN (02:42)
[2016-12-04] MEDS: METOPROLOL TARTRATE 5 MG/5 ML VIAL IV PUSH SCH ×2 (02:42→08:42)
[2016-12-04] MEDS: CHLORHEXIDINE GLUCONATE 2 % 1 PACK (2 CLOTHS) TOP SCH (04:00)
[2016-12-04] MEDS: ACETAMINOPHEN/HYDROcodone 325 MG/5 MG TAB PO PRN ×2 (04:13→11:13)
[2016-12-04 04:15] LABS: AUTOMATED NEUTROPHIL # 9.2 TH/MM3 (1.8-7.7); BASOPHIL % 0.2 % (0.0-2.0); EOSINOPHIL # 0.3 TH/MM3 (0-0.4); EOSINOPHIL % 2.4 % (0.0-4.0); HEMATOCRIT 37.9 % (39.0-51.0); LYMPH % 9.8 % (9.0-44.0); LYMPHOCYTE # 1.3 TH/MM3 (1.0-4.8); MEAN CELL VOLUME 98.6 FL (80.0-100.0); MEAN CORPUSCULAR HEMOGLOBIN 32.7 PG (27.0-34.0); MEAN CORPUSCULAR HGB CONC 33.2 % (32.0-36.0); MONO % 18.2 % (0.0-8.0); NEUT % 69.4 % (16.0-70.0); PLATELET COUNT 139 TH/MM3 (150-450); RED BLOOD COUNT 3.85 MIL/MM3 (4.50-5.90); RED CELL DISTRIBUTION WIDTH 15.6 % (11.6-17.2); WHITE BLOOD COUNT 13.3 TH/MM3 (4.0-11.0)
[2016-12-04 04:23] LABS: HEMO FLAGS AUTO DIFF
[2016-12-04 04:33] LABS: BICARBONATE 26.2 MEQ/L (21.0-32.0)
[2016-12-04 07:00] LABS: BANDS 22 % (0-6); BASOPHILS 1 % (0-2); EOSINOPHILS 2 % (0-4); METAMYELOCYTES 1 % (0-1); NEUTROPHIL # MANUAL DIFF 10.1 TH/MM3 (1.8-7.7); PLATELET ESTIMATE SMEAR LOW (NORMAL); PLATELET MORPHOLOGY NORMAL (NORMAL); POLYS (SEG NEUTROPHILS) 53 % (16-70); WBC DIFF SAMPLE 100
[2016-12-04 07:01] LABS: OVALOCYTES 1+ (NORMAL); SCAN/DIFF FINAL DIFF MANUAL
[2016-12-04] MEDS: SODIUM CHLORIDE 0.9% FLUSH 5 ML FLUSH IV FLUSH SCH ×2 (09:00→21:00)
[2016-12-04] MEDS: PANTOPRAZOLE SODIUM 40 MG VIAL IV SCH (10:10)
[2016-12-04] MEDS: DOCUSATE SODIUM 100 MG CAP PO SCH ×2 (10:10→20:57)
[2016-12-04] MEDS: LOSARTAN 50 MG TAB PO SCH (10:10)
[2016-12-04] MEDS: DIGOXIN 0.125 MG TAB PO SCH (10:10)
[2016-12-04] MEDS: CIPROFLOXACIN 500 MG TAB PO SCH ×2 (10:10→20:57)
[2016-12-04] MEDS: ATORVASTATIN 80 MG TAB PO SCH (10:11)
[2016-12-04] MEDS: METOPROLOL TARTRATE 100 MG TAB PO SCH ×2 (10:11→20:57)
[2016-12-04] MEDS: LABETALOL HCL 100 MG/20 ML VIAL IV PRN (12:00)
[2016-12-04] MEDS: cloNIDine HCL 0.1 MG TAB PO PRN ×2 (12:21→22:10)
--- NOTE | 2016-12-04 12:31 | RADRPT ---
EXAM DATE/TIME: 12/04/2016 11:40 [facility] COMPARISON: ANGIOGRAM, CEREBRAL WO ARCH, November 27, 2016, 15:10. CTA BRAIN W 3D RECON, November 27, 2016, 14:[address] BRAIN W/O CONTRAST, December 03, 2016, 15:25. INDICATIONS : Follow up bleed RADIATION DOSE: 56.35 CTDIvol (mGy) MEDICAL HISTORY : Cerebrovascular disease. Cardiovascular disease. Hypertension. SURGICAL HISTORY : None. ENCOUNTER: Subsequent ACUITY: 3 days PAIN SCALE: 6/10 LOCATION: Cranial TECHNIQUE: Multiple contiguous axial images were obtained of the head. Using automated exposure control and adj ustment of the mA and/or kV according to patient size, radiation dose was kept as low as reasonably a chievable to obtain optimal diagnostic quality images. FINDINGS: There are evolving hemorrhages in the right MCA territory with localized edema. The left hemisphere is unremarkable. Posterior fossa appears normal. CONCLUSION: Evolving hemorrhage in the right MCA territory with localized edema. Left hemisphere is unremarkable . Axel Joseph MD FACR on December 04, 2016 at 12:25 Board Certified Radiologist. This report was verified electronically.
--- NOTE | 2016-12-04 12:55 | HHI.CCPN ---
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 Striking his left for head left arm and left knee. Family noted the patient had left upper and lower extremity weakness as well as difficulties with speech and he was brought to the emergency room on November as a stroke alert. Initial CT scan was negative for stroke or hemorrhage, neurology Dr. Laura Nicole was consulted the patient was not a candidate for TPA due to an elevated PT R on Coumadin. Subsequent CTA of the carotid showed 90% stenosis at the right internal carotid artery and no significant stenosis of the left internal carotid artery. 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 The patient was started on permissive hypertension and monitored in critical care is also noted on admission the patient had a urinary tract infection and he was started on Cipro by mouth. The patient started therapies including speech therapy initial swallows evaluation with dysphasia the patient has progressed or mechanical soft diet with honey thick liquids. In physical therapy therapy the patient is total assist he has decreased sitting balance does not progressed beyond bed mobility. Patient was accepted to rehabilitation on 12/02/16. He has been complaining of a headache for the last few days. Head CT done today revealed hemorrhagic conversion in area of prior stroke with some mass effect for which Dr. Avendano from neurosurgery was contacted by Dr. Blair from [facility] and advised transferring patient to [facility]. Patient was accepted for admission by critical care medicine service and transferred to [facility] where I evaluated him immediately on arrival. At the time of my evaluation patient is awake and alert following commands. He was complaining of a headache which he rated 3 out of 10 in intensity. He denied any visual blurring or double vision denied any nausea, abdominal pain. He knew he was at [facility] and could converse with me appropriately and give me details regarding his initial presentation with a stroke and knew the date month and year. 12/04: Resting comfortably in bed. Awake and alert. Headache better which she relates to out of 10 in intensity. Tolerating by mouth diet. Objective Vital Signs Date Time Temp Pulse Resp B/P Pulse Ox O2 Delivery O2 Flow Rate FiO2 12/04/16 12:00 97.8 93 19 164/83 96 12/04/16 03:31 21 Intake and Output 12/03/16 12/03/16 12/04/16 08:00 16:00 00:00 Intake Total 188 ml Output Total 500 ml Balance -312 ml Result Diagram: 12/04/16 0322 12/04/[address] 12/03: Right MCA territory infarct with hemorrhagic conversion and mass effect Objective Remarks HEENT/Neuro: No pallor or icterus, tongue moist, LAURENCE, Awake alert oriented 3 , left hemiparalysis. Grade 2 power in left upper extremity, grade 4 power left lower extremity, grade 5 power in the right upper and lower extremity. Pupils 3 mm bilaterally reacting actively to light. 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 fib Hyperlipidemia Plan: Neuro: Holding Coumadin. Vitamin K 10 mg subcutaneously x 1 dose on 12/03. INR on 12/03 was 1.1. Neurosurgery consulted for hemorrhagic conversion and ischemic stroke. Consult neurology. Continue neuro checks. Repeat head CT pending. Cardiovascular: Continue metoprolol 100 mg by mouth twice a day. Labetalol 20 mg IV every 2 hourly when necessary for systolic blood pressure greater than 150 mmHg. Continue losartan. Added Norvasc 10 mg by mouth daily. Clonidine when necessary Pulmonary: Supplemental O2 as needed. Bronchodilators when necessary. Currently protecting airway. GI/liver: Patient was tolerating by mouth diet on rehabilitation which is being continued Renal/: Gental hydration, follow urine output, monitor and replete electrolites, follow BUN/creatinine. ID: Continue ciprofloxacin for UTI Endocrine: Watch for hyperglycemia, SSI for glycemic control if needed. Heme: Follow CBC. Stop Coumadin in view of hemorrhagic conversion and ischemic stroke. Vitamin K 10 mg subcutaneously on 12/04 ordered. Prophylaxis: PPI/SCDs. Subcutaneous heparin when okay with neurosurgery. Further recommendations per neurosurgery/ neurology. Discussed with patient's earlier. Patient will be transferred to hospitalist service. If head CT is unchanged, transfer out of ICU to medical floor. Ridge Jacobsen MD Dec 04, 2016 12:55
[2016-12-04 13:01] LABS: INTERNATIONAL NORMALIZED RATIO 1.1 RATIO; PROTHROMBIN TIME - PATIENT 12.4 SEC (9.8-11.6)
--- NOTE | 2016-12-04 16:35 | PD.CONS ---
History of Present Illness Service Neurology Consult Requested By [facility] Reason for Consult stroke Primary Care Physician Unknown History of Present Illness 81-year-old male admitted on 11/27/2016 as a stroke alert; history of atrial fibrillation and hypertension presents having been walking to the bathroom seen normal by his family at 12:30 and at 1250 they heard a thump and found him on the bathroom floor having fallen. The patient is on Coumadin for chronic atrial fibrillation. inr 1.4. did not get iv tpa. had selective rt carotid angiogram. no intervention performed as he was noted to have moderate stenosis but no clot. he was [place] [facility] [place] findings of ICH after he was noted to be more lethargic. inr 1.1 to 1.2 in rehab. he is aware of his left sided weakness. he c/o of rt sided thrasher relieved with pain medications. Review of Systems ROS Unable to obtain due to patient's dysarthria Past Family Social History Allergies: Coded Allergies: Lisinopril (Verified Allergy, Unknown, 11/27/16) Past Medical History Hypertension Atrial fibrillation Chronic anticoagulation Past Surgical History Unknown Reported Medications Reported Meds & Active Scripts Active Reported Losartan (Losartan Potassium) 25 Mg Tab 25 Mg PO DAILY Warfarin 4 Mg Tab 4 Mg PO DAILY Iron (Ferrous Sulfate) 50 Mg Tab 65 Mg PO DAILY Digoxin 0.125 Mg Tab 0.125 Mg PO DAILY Metoprolol Tartrate 100 Mg Tab 100 Mg PO BID Family History Noncontributory Social History , no tob/etoh use Review of Systems All other ROS: ROS reviewed as documented in chart Past Family Social History Allergies: Coded Allergies: Lisinopril (Verified Allergy, Unknown, 12/03/16) Active Ordered Medications Current Medications Medications (Trade) Dose Ordered Sig/Oapl Route Start Time Stop Time Status Last Admin (NS Flush) 2 ml UNSCH PRN IV FLUSH 12/03/16 17:15 (NS Flush) 2 ml BID IV FLUSH 12/03/16 21:00 ([place] 5-325 Mg) 1 tab Q4H PRN PO 12/03/16 17:15 12/04/16 11:13 (Morphine Inj) 2 mg Q2H PRN IV 12/03/16 17:15 12/04/16 02:42 (Protonix Inj) 40 mg DAILY IV 12/04/16 09:00 12/04/16 10:10 (Zofran Inj) 4 mg Q6H PRN IV 12/03/16 17:15 (Reglan Inj) 10 mg Q6H PRN IV 12/03/16 17:15 (Colace) 100 mg BID PO 12/03/16 21:00 12/04/16 10:10 (Senokot) 17.2 mg Q12H PRN PO 12/03/16 17:15 Miscellaneous Information 1 Q361D XX 12/03/16 17:15 (Chlorhexidine 2% Cloth) 3 pack Taper DAILY@04 TOP 12/04/16 04:00 11/30/17 03:59 12/04/16 04:00 (Chlorhexidine 2% Cloth) 3 pack UNSCH PRN TOP 12/03/16 17:15 (Lipitor) 80 mg DAILY PO 12/04/16 09:00 12/04/16 10:11 (Cipro) 500 mg Q12HR PO 12/03/16 21:00 12/04/16 10:10 (Lanoxin) 0.125 mg DAILY PO 12/04/16 09:00 12/04/16 10:10 (Cozaar) 100 mg DAILY PO 12/04/16 09:00 12/04/16 10:10 (Lopressor) 100 mg BID PO 12/03/16 21:00 12/04/16 10:11 (Ferrous Sulfate) 325 mg DAILY@17 PO 12/04/16 17:00 Labetalol HCl 20 mg 20 mg Q2H PRN IV 12/03/16 18:45 12/04/16 12:00 (Cardene Inj/NS 250 ml Inj) 260 ml @ 0 mls/hr TITRATE IV 12/03/16 19:45 (Catapres) 0.1 mg Q6H PRN PO 12/03/16 21:00 12/04/16 12:21 (Norvasc) 10 mg DAILY PO 12/04/16 12:30 12/04/16 14:40 Exam I&O / VS 12/03/16 12/03/16 12/04/16 15:00 23:00 07:00 Intake Total 188 ml 433 ml Output Total 500 ml 600 ml Balance -312 ml -167 ml Intake IV Total 188 ml 433 ml Output Urine Total 500 ml 600 ml Vital Signs Date Time Temp Pulse Resp B/P Pulse Ox O2 Delivery O2 Flow Rate FiO2 12/04/16 15:00 90 12/04/16 14:00 89 12/04/16 12:00 97.8 93 19 164/83 96 12/04/16 10:21 95 12/04/16 08:00 91 12/04/16 08:00 98.3 91 18 145/82 95 12/04/16 05:13 15 12/04/16 03:31 94 21 12/04/16 03:00 98.4 90 18 155/86 96 12/04/16 02:47 19 12/03/16 23:00 95 12/03/16 23:00 98.4 95 20 116/63 97 12/03/16 20:00 98.1 109 20 169/90 97 12/03/16 19:00 109 12/03/16 16:45 103 General: No acute distress Respiratory: Lungs CTA, Non-labored respirations, BS equal, Symmetrical expansion Cardiology: Intact pulses, Irregular Rhythm Musculoskeletal: ROM, Tenderness, Swelling Neurologic: Alert, Oriented Psychiatric: Cooperative Exam Comments ox 2-3. follows, dysarthric speech, rt gaze preference, ou 3-2mm, mild ?left hh , left ue 0/5, left leg 2-3/5 with left hemisensory, depressed msr Review/Management Diagnosis/Plan: (1) Acute right MCA stroke Plan: 11/27/2016 rt mca stroke- likely cardioembolic with subtherapeutic inr 12/03/2016 rt mca stroke with ICH transformation 12/04 ct brain stable; no significant shift rec off blood thinners until ich clears up and as per nsx bp control scd's p.t. probable return to rehab in 1-2 days (2) Atrial fibrillation Plan: oac on hold (3) Hyperlipemia (4) Hypertension Problem Qualifiers (1) Atrial fibrillation: Qualified Code: I48.91 - Atrial fibrillation, unspecified type (2) Hyperlipemia: Qualified Code: E78.5 - Hyperlipidemia, unspecified hyperlipidemia type (3) Hypertension: Qualified Code: I10 - Essential hypertension Juanito Reid MD Dec 04, 2016 16:35
[2016-12-04] MEDS: FERROUS SULFATE 325 MG (65 MG ELEMENTAL IRON) TAB PO SCH (17:15)
[2016-12-05] VITALS (10 sets, daily range): BP systolic 129–163; BP diastolic 72–95; PULSE 76–97; RESP 12–25; TEMP 97.7–98.3; O2SAT 94–98
[2016-12-05] MEDS: CHLORHEXIDINE GLUCONATE 2 % 1 PACK (2 CLOTHS) TOP SCH (04:00)
[2016-12-05] MEDS: METOPROLOL TARTRATE 100 MG TAB PO SCH ×2 (08:34→19:43)
[2016-12-05] MEDS: ATORVASTATIN 80 MG TAB PO SCH (08:34)
[2016-12-05] MEDS: CIPROFLOXACIN 500 MG TAB PO SCH ×2 (08:34→19:43)
[2016-12-05] MEDS: DIGOXIN 0.125 MG TAB PO SCH (08:34)
[2016-12-05] MEDS: LOSARTAN 50 MG TAB PO SCH (08:34)
[2016-12-05] MEDS: PANTOPRAZOLE SODIUM 40 MG VIAL IV SCH (08:34)
[2016-12-05] MEDS: SODIUM CHLORIDE 0.9% FLUSH 5 ML FLUSH IV FLUSH SCH ×2 (08:35→19:43)
[2016-12-05] MEDS: DOCUSATE SODIUM 100 MG CAP PO SCH ×2 (08:35→19:43)
--- NOTE | 2016-12-05 08:49 | HHI.PR ---
Review/Management Diagnosis/Plan: (1) Acute right MCA stroke Plan: 11/27/2016 rt mca stroke- likely cardioembolic with subtherapeutic inr 12/03/2016 rt mca stroke with ICH transformation 12/04 ct brain stable; no significant shift rec neuro stable off blood thinners until ich clears up and as per nsx bp control scd's p.t. ok for 5th floor with tele (2) Atrial fibrillation Plan: oac on hold (3) Hyperlipemia (4) Hypertension Subjective Subjective Comments No acute events reported No headache No chest pain No dyspnea Active Medications Current Medications Medications (Trade) Dose Ordered Sig/Opal Route Start Time Stop Time Status Last Admin (NS Flush) 2 ml UNSCH PRN IV FLUSH 12/03/16 17:15 (NS Flush) 2 ml BID IV FLUSH 12/03/16 21:00 12/05/16 08:35 ([place] 5-325 Mg) 1 tab Q4H PRN PO 12/03/16 17:15 12/04/16 11:13 (Morphine Inj) 2 mg Q2H PRN IV 12/03/16 17:15 12/04/16 02:42 (Protonix Inj) 40 mg DAILY IV 12/04/16 09:00 12/05/16 08:34 (Zofran Inj) 4 mg Q6H PRN IV 12/03/16 17:15 (Reglan Inj) 10 mg Q6H PRN IV 12/03/16 17:15 (Colace) 100 mg BID PO 12/03/16 21:00 12/05/16 08:35 (Senokot) 17.2 mg Q12H PRN PO 12/03/16 17:15 Miscellaneous Information 1 Q361D XX 12/03/16 17:15 (Chlorhexidine 2% Cloth) 3 pack Taper DAILY@04 TOP 12/04/16 04:00 11/30/17 03:59 12/05/16 04:00 (Chlorhexidine 2% Cloth) 3 pack UNSCH PRN TOP 12/03/16 17:15 (Lipitor) 80 mg DAILY PO 12/04/16 09:00 12/05/16 08:34 (Cipro) 500 mg Q12HR PO 12/03/16 21:00 12/05/16 08:34 (Lanoxin) 0.125 mg DAILY PO 12/04/16 09:00 12/05/16 08:34 (Cozaar) 100 mg DAILY PO 12/04/16 09:00 12/05/16 08:34 (Lopressor) 100 mg BID PO 12/03/16 21:00 12/05/16 08:34 (Ferrous Sulfate) 325 mg DAILY@17 PO 12/04/16 17:00 12/04/16 17:15 Labetalol HCl 20 mg 20 mg Q2H PRN IV 12/03/16 18:45 12/04/16 12:00 (Cardene Inj/NS 250 ml Inj) 260 ml @ 0 mls/hr TITRATE IV 12/03/16 19:45 (Catapres) 0.1 mg Q6H PRN PO 12/03/16 21:00 12/04/16 22:10 (Norvasc) 10 mg DAILY PO 12/04/16 12:30 12/05/16 08:34 Allergies Allergies Coded Allergies Lisinopril (Verified Allergy, Unknown, 12/03/16) Review of Systems All other ROS: ROS reviewed as documented in chart Exam I&O / VS 12/04/16 12/04/16 12/05/16 14:59 22:59 06:59 Intake Total 416 ml 50 ml Output Total 200 ml 450 ml 600 ml Balance 216 ml -400 ml -600 ml Intake Oral 50 ml IV Total 416 ml Output Urine Total 200 ml 450 ml 600 ml # Voids 1 # Bowel Movements 0 0 0 Vital Signs Date Time Temp Pulse Resp B/P Pulse Ox O2 Delivery O2 Flow Rate FiO2 12/05/16 04:00 97.7 86 19 149/95 96 12/05/16 00:00 97.9 97 25 129/72 96 12/04/16 23:00 87 12/04/16 20:00 98.6 81 12 148/77 96 12/04/16 16:00 98.0 81 15 113/69 97 12/04/16 15:00 90 12/04/16 14:00 89 12/04/16 12:00 97.8 93 19 164/83 96 12/04/16 10:21 95 General: No acute distress Respiratory: Lungs CTA, Non-labored respirations, BS equal, Symmetrical expansion Cardiology: Intact pulses, Irregular Rhythm Musculoskeletal: ROM, Tenderness, Swelling Neurologic: Alert, Oriented Psychiatric: Cooperative Exam Comments ox 2-3. follows, dysarthric speech, minimal rt gaze preference, ou 3-2mm, vff grossly full, left ue 0/5, left leg 2-3/5 with left hemisensory, depressed msr Objective Micro and Labs Laboratory Tests Test 12/04/16 12:35 Prothrombin Time 12.4 Prothromb Time International 1.1 Ratio Problem Qualifiers (1) Atrial fibrillation: Qualified Code: I48.91 - Atrial fibrillation, unspecified type (2) Hyperlipemia: Qualified Code: E78.5 - Hyperlipidemia, unspecified hyperlipidemia type (3) Hypertension: Qualified Code: I10 - Essential hypertension Juanito Reid MD Dec 05, 2016 08:49
[2016-12-05] MEDS: ACETAMINOPHEN/HYDROcodone 325 MG/5 MG TAB PO PRN ×2 (12:10→19:43)
--- NOTE | 2016-12-05 12:50 | HHI.PR ---
Subjective Remarks Follow-up evolving Hemorrhage in the right MCA 12/05/16-patient seen and examined; alert and oriented to self, and place. Denies any headache. by the bedside Objective Vitals Vital Signs Date Time Temp Pulse Resp B/P Pulse Ox O2 Delivery O2 Flow Rate FiO2 12/05/16 08:00 98.3 93 22 163/81 94 12/05/16 07:00 85 12/05/16 04:00 97.7 86 19 149/95 96 12/05/16 00:00 97.9 97 25 129/72 96 12/04/16 23:00 87 12/04/16 20:00 98.6 81 12 148/77 96 12/04/16 16:00 98.0 81 15 113/69 97 12/04/16 15:00 90 12/04/16 14:00 89 I/O 12/04/16 12/04/16 12/04/16 12/05/16 12/05/16 12/05/16 07:00 15:00 23:00 07:00 15:00 23:00 Intake Total 433 ml 416 ml 50 ml Output Total 600 ml 200 ml 450 ml 600 ml Balance -167 ml 216 ml -400 ml -600 ml Intake Oral 50 ml IV Total 433 ml 416 ml Output Urine Total 600 ml 200 ml 450 ml 600 ml # Voids 1 # Bowel Movements 0 0 0 Result Diagram: 12/04/16 0322 12/04/16 0322 Imaging Last Impressions Head CT 12/04/16 1100 Signed Impressions: Service Date/Time: Sunday, December 04, 2016 11:40 - CONCLUSION: Evolving hemorrhage in the right MCA territory with localized edema. Left hemisphere is unremarkable. Axel Joseph MD FACR Objective Remarks GENERAL: NAD SKIN: Warm and dry. HEAD: Normocephalic. EYES: No scleral icterus. No injection or drainage. NECK: Supple, trachea midline. No JVD or lymphadenopathy. CARDIOVASCULAR: Regular rate and rhythm without murmurs, gallops, or rubs. RESPIRATORY: Breath sounds equal bilaterally. No accessory muscle use. GASTROINTESTINAL: Abdomen soft, non-tender, nondistended. MUSCULOSKELETAL: No cyanosis, or edema. 2/5 LUE; 4/5RUE BACK: Nontender without obvious deformity. No CVA tenderness. A/P Problem List: (1) Acute right MCA stroke ICD Code: I63.511 Status: Acute (2) Hyperlipemia ICD Code: E78.5 Status: Chronic (3) Hypertension ICD Code: I10 Status: Chronic (4) Atrial fibrillation ICD Code: I48.91 Status: Chronic Assessment and Plan 81-year-old man with Ischemic stroke with hemorrhagic conversion: 12/03/2016 rt mca stroke with ICH transformation but follow up CT brain stable and no significant shift 12/04/16. Off blood thinner. Appreciate input from neurology as well as neurosurgery. Continue with neuro check. PT/OT/speech therapy. Will transfer patient back to [facility] Hypertension: Continue metoprolol 100 mg by mouth twice a day, losartan and Norvasc 10 mg by mouth daily Chronic A. fib: Coumadin was discontinued in view of hemorrhagic conversion and ischemic stroke. Continue digoxin and Lopressor Hyperlipidemia: Lipitor 80 mg at bedtime UTI: Continue Cipro Prophylaxis: PPI/SCDs. Subcutaneous heparin when okay with neurosurgery. Problem Qualifiers (1) Hyperlipemia: Qualified Code: E78.5 - Hyperlipidemia, unspecified hyperlipidemia type (2) Hypertension: Qualified Code: I10 - Essential hypertension (3) Atrial fibrillation: Qualified Code: I48.91 - Atrial fibrillation, unspecified type Celestine Kay MD Dec 05, 2016 12:50 (1) Hyperlipemia: Qualified Code: E78.5 - Hyperlipidemia, unspecified hyperlipidemia type (2) Hypertension: Qualified Code: I10 - Essential hypertension (3) Atrial fibrillation: Qualified Code: I48.91 - Atrial fibrillation, unspecified type Celestine Kay MD Dec 05, 2016 12:50
[2016-12-05] MEDS ORDERED: AMLO10 PO (12:57)
--- NOTE | 2016-12-05 13:07 | HHI.DS ---
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 Striking his left for head left arm and left knee. Family noted the patient had left upper and lower extremity weakness as well as difficulties with speech and he was brought to the emergency room on November as a stroke alert. Initial CT scan was negative for stroke or hemorrhage, neurology Dr. Laura Nicole was consulted the patient was not a candidate for TPA due to an elevated PT R on Coumadin. Subsequent CTA of the carotid showed 90% stenosis at the right internal carotid artery and no significant stenosis of the left internal carotid artery. 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 The patient was started on permissive hypertension and monitored in critical care is also noted on admission the patient had a urinary tract infection and he was started on Cipro by mouth. The patient started therapies including speech therapy initial swallows evaluation with dysphasia the patient has progressed or mechanical soft diet with honey thick liquids. In physical therapy therapy the patient is total assist he has decreased sitting balance does not progressed beyond bed mobility. Patient was accepted to rehabilitation on 12/02/16. He has been complaining of a headache for the last few days. Head CT done today revealed hemorrhagic conversion in area of prior stroke with some mass effect for which Dr. Avendano from neurosurgery was contacted by Dr. Blair from [facility] and advised transferring patient to [facility]. Patient was accepted for admission by critical care medicine service and transferred to [facility] where I evaluated him immediately on arrival. At the time of my evaluation patient is awake and alert following commands. He was complaining of a headache which he rated 3 out of 10 in intensity. He denied any visual blurring or double vision denied any nausea, abdominal pain. He knew he was at [facility] and could converse with me appropriately and give me details regarding his initial presentation with a stroke and knew the date month and year. Past Family Social History Allergies: Coded Allergies: Lisinopril (Verified Allergy, Unknown, 11/27/16) Past Medical History Hypertension Atrial fibrillation ALLERGIES: LISINOPRIL MEDS ON REHAB Acetaminophen (Tylenol) 650 mg Q6H PRN PO PAIN 1-10 AND/OR FEVER >101F Last administered on 12/03/16 08:03; Start 12/02/16 at 14:15 Aspirin (Ecotrin Ec) 81 mg DAILY PO Last administered on 12/03/16 08:04; Start 12/03/16 at 09:00 Atorvastatin Calcium (Lipitor) 80 mg DAILY PO Last administered on 12/03/16 08 :04; Start 12/03/16 at 09:00 Ciprofloxacin (Cipro) 500 mg Q12HR PO Last administered on 12/03/16 08:04; Start 12/02/16 at 21:00; Stop 12/09/16 at 20:59 Digoxin (Lanoxin) 0.125 mg DAILY PO Last administered on 12/03/16 08:04; Start 12/03/16 at 09:00 Ferrous Sulfate (Ferrous Sulfate) 325 mg DAILY@1300 PO Last administered on 12:16; Start 12/03/16 at 13:00 Hydralazine HCl 25 mg 25 mg Q8HR PRN PO SBP>160, DBP>90; Start 12/03/16 at 10: 00 Lactobacillus Acidophilus (Lactinex) 1 tab DAILY PO Last administered on 08:04; Start 12/03/16 at 09:00 Losartan Potassium (Cozaar) 100 mg DAILY PO ; Start 12/04/16 at 09:00 Metoprolol Tartrate (Lopressor) 100 mg BID PO Last administered on 12/03/16 08 :04; Start 12/02/16 at 21:00 Ondansetron HCl (Zofran Odt) 4 mg Q6H PRN PO NAUSEA OR VOMITING; Start at 14:15 Patient Medication Teaching (Coumadin Booklet) 1 ONCE ONCE XX Last administered on 12/02/16 16:18; Start 12/02/16 at 16:00; Stop 12/02/16 at 16:01 ; Status DC Pharmacy Profile Note (Coumadin Consult Pharmacy) 0 ml @ 0 mls/hr UNSCH OTHER ; Start 12/03/16 at 10:30 Senna/Docusate Sodium (Jennie-Colace) 1 tab HS PO Last administered on 12/02/16 21:03; Start 12/02/16 at 21:00 Warfarin Sodium (Coumadin) 4 mg DAILY@1600 PO Last administered on 12/02/16 16 :19; Start 12/02/16 at 16:00 CBC/BMP: 12/04/16 0322 12/04/16 0322 Significant Findings Laboratory Tests Test 12/03/16 12/04/16 12/04/16 18:24 03:22 12:35 White Blood Count 14.4 TH/MM3 13.3 TH/MM3 (4.0-11.0) (4.0-11.0) Red Blood Count 3.99 MIL/MM3 3.85 MIL/MM3 (4.50-5.90) (4.50-5.90) Neutrophils (%) (Auto) 73.6 % (16.0-70.0) Lymphocytes (%) (Auto) 7.8 % (9.0-44.0) Monocytes (%) (Auto) 16.2 % 18.2 % (0.0-8.0) (0.0-8.0) Neutrophils # (Auto) 10.6 TH/MM3 9.2 TH/MM3 (1.8-7.7) (1.8-7.7) Monocytes # (Auto) 2.3 TH/MM3 2.4 TH/MM3 (0-0.9) (0-0.9) Band Neutrophils % 9 % (0-6) 22 % (0-6) Lymphocytes % 7 % (9-44) 4 % (9-44) Monocytes % 17 % (0-8) 17 % (0-8) Neutrophils # (Manual) 10.9 TH/MM3 10.1 TH/MM3 (1.8-7.7) (1.8-7.7) Ovalocytes 1+ (NORMAL) 1+ (NORMAL) Prothrombin Time 13.6 SEC 12.4 SEC (9.8-11.6) (9.8-11.6) Sodium Level 135 MEQ/L (136-145) Estimat Glomerular Filtration 75 ML/MIN (>89) 81 ML/MIN (>89) Rate Calcium Level 8.0 MG/DL 7.8 MG/DL (8.5-10.1) (8.5-10.1) Total Protein 5.9 GM/DL (6.4-8.2) Albumin 2.3 GM/DL (3.4-5.0) Hemoglobin 12.6 GM/DL (13.0-17.0) Hematocrit 37.9 % (39.0-51.0) Platelet Count 139 TH/MM3 (150-450) Platelet Estimate LOW (NORMAL) Imaging Last Impressions Head CT 12/05/16 0000 Signed Impressions: Service Date/Time: December 16:39 - CONCLUSION: 1. Evolving right hemispheric hemorrhagic infarct with mass effect but no herniation. No acute hemorrhage is identified. Kishan Loza MD Last Impressions Head CT 12/04/16 1100 Signed Impressions: Service Date/Time: Sunday, December 04, 2016 11:40 - CONCLUSION: Evolving hemorrhage in the right MCA territory with localized edema. Left hemisphere is unremarkable. Axel Joseph MD FACR PE at Discharge GENERAL: NAD SKIN: Warm and dry. HEAD: Normocephalic. EYES: No scleral icterus. No injection or drainage. NECK: Supple, trachea midline. No JVD or lymphadenopathy. CARDIOVASCULAR: Regular rate and rhythm without murmurs, gallops, or rubs. RESPIRATORY: Breath sounds equal bilaterally. No accessory muscle use. GASTROINTESTINAL: Abdomen soft, non-tender, nondistended. MUSCULOSKELETAL: No cyanosis, or edema. 2/5 LUE; 4/5RUE BACK: Nontender without obvious deformity. No CVA tenderness. Hospital Course Patient was recently discharged to [facility] however had Ischemic stroke with hemorrhagic conversion, 12/03/2016 right mca stroke with ICH transformation but follow up CT brain stable and no significant shift on 12/04/16 as well as 12/05/16. Neurosurgery and neurology were both consulted. Off blood thinner. Initially under the care of critical care medicine; blood pressure was managed accordingly and patient was continued on his regimen of Lopressor 100 mg twice a day, losartan 100 mg once a day and Norvasc 10 mg was added to achieve BP control. He was continued on Lipitor. Coumadin was held and discontinued and patient remained rate controlled on digoxin and Lopressor. Treatment with Cipro for UTI was continued. PT/OT/speech therapy.He will resume ASA on . DVT and GI prophylaxis were provided. Vitals remained stable Pt Condition on Discharge: Fair Discharge Disposition: Rehab Inpatient Discharge Time: > 30 minutes Discharge Instructions DIET: Follow Instructions for: Soft Diet Speech Therapy-Diet Recommends: Honey Thickened Liquids, Mechanical Soft, Chopped Meat w/Gravy Activities you can perform: Regular-No Restrictions Follow up Referrals: PCP Follow-up - 2-3 Days New Medications: Amlodipine (Norvasc) 10 Mg Tab 10 MG PO DAILY Blood Pressure Management #[address] (Aspirin EC) 81 Mg Tabdr 81 MG PO DAILY Prevent Blood Clot #30 TAB Continued Medications: Atorvastatin (Lipitor) 80 Mg Tab 80 MG PO DAILY Cholesterol Management #30 TAB Ciprofloxacin (Cipro) 500 Mg Tab 500 MG PO Q12HR Infection #14 TAB Digoxin (Digoxin) 0.125 Mg Tab 0.125 MG PO DAILY Regulate Heart Beat #30 Ref 0 TAB Ferrous Sulfate (Iron) 50 Mg Tab 65 MG PO DAILY Nutritional Supplement Ref 0 TAB Losartan (Cozaar) 50 Mg Tab 100 MG PO DAILY Days 30 TAB Metoprolol Tartrate (Metoprolol Tartrate) 100 Mg Tab 100 MG PO BID #60 Ref 0 TAB Celestine Kay MD Dec 05, 2016 13:07
--- NOTE | 2016-12-05 16:48 | RADRPT ---
EXAM DATE/TIME: 12/05/2016 16:39 [facility] COMPARISON: CT BRAIN W/O CONTRAST, December 04, 2016, 11:40. INDICATIONS : Recent stroke alert with intracranial hemorrhage; increased left upper extremity weakness. RADIATION DOSE: 40.89 CTDIvol (mGy) MEDICAL HISTORY : Cerebrovascular disease. Hypertension. Cardiovascular disease SURGICAL HISTORY : None. ENCOUNTER: Initial ACUITY: 1 week PAIN SCALE: 3/10 LOCATION: cranial TECHNIQUE: Multiple contiguous axial images were obtained of the head. Using automated exposure control and adj ustment of the mA and/or kV according to patient size, radiation dose was kept as low as reasonably a chievable to obtain optimal diagnostic quality images. FINDINGS: There is evolving hemorrhagic infarct in the right basal ganglia and right frontal lobe similar to th e prior study with mass effect on the body of the right lateral ventricle but no signs of herniation. No acute infarct is seen. Posterior fossa structures are unremarkable. CONCLUSION: 1. Evolving right hemispheric hemorrhagic infarct with mass effect but no herniation. No acute hemorr alfred is identified. Kishan Loza MD on December 05, 2016 at 16:44 Board Certified Radiologist. This report was verified electronically.
[2016-12-05] MEDS: FERROUS SULFATE 325 MG (65 MG ELEMENTAL IRON) TAB PO SCH (16:56)
[2016-12-05] MEDS: cloNIDine HCL 0.1 MG TAB PO PRN (19:43)
--- NOTE | 2016-12-05 21:32 | HHI.NSPN ---
History Chief Complaint: no complaints Interval History 81-year-old male status post right CVA with left hemiparesis. Initially discharged to inpatient rehabilitation with recent readmission to the intensive surgical care unit after mental status changes with complaint of headache and follow-up CT scan revealing hemorrhagic component in the right frontal lobe. Exam Results Vital Signs Date Time Temp Pulse Resp B/P Pulse Ox O2 Delivery O2 Flow Rate FiO2 12/05/16 20:29 97 21 12/05/16 16:00 98.0 86 21 131/76 Intake and Output 12/04/16 12/04/16 12/05/16 08:00 16:00 00:00 Intake Total 433 ml 416 ml 50 ml Output Total 600 ml 200 ml 450 ml Balance -167 ml 216 ml -400 ml Physical Examination Respirations clear and nonlabored Cardiac: Heart rate regular Abdomen: Soft nontender Extremities: No significant edema. No significant joint pain with range of motion Neurologic: Awake and alert Speech somewhat slow but clear and appropriate. Oriented 3 Pulsatile commands well Extraocular movements and visual black to confrontation intact Mild left facial paresis Tongue protrudes slightly to left Sensation intact by touch all extremities Strength 5/5 right upper and lower extremity major flexion and extension groups Trace movement left hand grasp and intermittent slight movement proximal left upper extremity Left lower extremity mostly 3/5 proximal, 4/5 distal Lab, Micro, Other Results 12/05/16 CT scan head reveals involving right frontal hemorrhagic CVA with mild mass effect. No midline shift Head CT 12/05/16 0000 Signed Impressions: Service Date/Time: December 16:39 - CONCLUSION: 1. Evolving right hemispheric hemorrhagic infarct with mass effect but no herniation. No acute hemorrhage is identified. Kishan Loza MD Medical Decision Making Impression and Plan Impression: Stable right frontal basal ganglia CVA with delayed hemorrhagic component Plan: Follow-up CT scan was obtained today since the patient seemed to have some increase in left upper extremity paresis. CT scan head is stable Discussed with the patient. He is stable for discharge back to inpatient rehabilitation from a neurosurgery standpoint. No neurosurgical intervention anticipated at this time. He may resume antiplatelet agents and/or Lovenox as indicated from medical/ neurologic standpoint. Valdez Cruz MD Dec 05, 2016 21:32
[2016-12-06] VITALS (9 sets, daily range): BP systolic 103–168; BP diastolic 59–99; PULSE 70–105; RESP 14–21; TEMP 97.4–98.6; O2SAT 93–97
[2016-12-06] MEDS: MORPHINE SULFATE 4 MG/ML INJ IV PRN (01:02)
[2016-12-06] MEDS: LABETALOL HCL 100 MG/20 ML VIAL IV PRN (02:12)
[2016-12-06] MEDS: CHLORHEXIDINE GLUCONATE 2 % 1 PACK (2 CLOTHS) TOP SCH (04:00)
[2016-12-06] MEDS: ACETAMINOPHEN/HYDROcodone 325 MG/5 MG TAB PO PRN ×2 (04:30→21:32)
[2016-12-06] MEDS: cloNIDine HCL 0.1 MG TAB PO PRN (04:30)
--- NOTE | 2016-12-06 08:06 | HHI.PR ---
Review/Management Diagnosis/Plan: (1) Acute right MCA stroke Plan: 11/27/2016 rt mca stroke- likely cardioembolic with subtherapeutic inr 12/03/2016 rt mca stroke with ICH transformation 12/04 ct brain stable; no significant shift 12/05 ct brain stable rec neuro stable ok to go back to rehab can resume aspirin 81mg; cleared by nsx would resume OAC once ich resolves; repeat ct brain in 2-3 weeks bp control scd's p.t. sign off (2) Atrial fibrillation Plan: oac on hold (3) Hyperlipemia (4) Hypertension Subjective Subjective Comments No acute events reported No headache No chest pain No dyspnea Active Medications Current Medications Medications (Trade) Dose Ordered Sig/Opal Route Start Time Stop Time Status Last Admin (NS Flush) 2 ml UNSCH PRN IV FLUSH 12/03/16 17:15 (NS Flush) 2 ml BID IV FLUSH 12/03/16 21:00 12/05/16 19:43 ([place] 5-325 Mg) 1 tab Q4H PRN PO 12/03/16 17:15 12/06/16 04:30 (Morphine Inj) 2 mg Q2H PRN IV 12/03/16 17:15 12/06/16 01:02 (Protonix Inj) 40 mg DAILY IV 12/04/16 09:00 12/05/16 08:34 (Zofran Inj) 4 mg Q6H PRN IV 12/03/16 17:15 12/06/16 01:01 (Reglan Inj) 10 mg Q6H PRN IV 12/03/16 17:15 (Colace) 100 mg BID PO 12/03/16 21:00 12/05/16 19:43 (Senokot) 17.2 mg Q12H PRN PO 12/03/16 17:15 Miscellaneous Information 1 Q361D XX 12/03/16 17:15 (Chlorhexidine 2% Cloth) 3 pack Taper DAILY@04 TOP 12/04/16 04:00 11/30/17 03:59 12/06/16 04:00 (Chlorhexidine 2% Cloth) 3 pack UNSCH PRN TOP 12/03/16 17:15 (Lipitor) 80 mg DAILY PO 12/04/16 09:00 12/05/16 08:34 (Cipro) 500 mg Q12HR PO 12/03/16 21:00 12/05/16 19:43 (Lanoxin) 0.125 mg DAILY PO 12/04/16 09:00 12/05/16 08:34 (Cozaar) 100 mg DAILY PO 12/04/16 09:00 12/05/16 08:34 (Lopressor) 100 mg BID PO 12/03/16 21:00 12/05/16 19:43 (Ferrous Sulfate) 325 mg DAILY@17 PO 12/04/16 17:00 12/05/16 16:56 Labetalol HCl 20 mg 20 mg Q2H PRN IV 12/03/16 18:45 12/06/16 02:12 (Cardene Inj/NS 250 ml Inj) 260 ml @ 0 mls/hr TITRATE IV 12/03/16 19:45 (Catapres) 0.1 mg Q6H PRN PO 12/03/16 21:00 12/06/16 04:30 (Norvasc) 10 mg DAILY PO 12/04/16 12:30 12/05/16 08:34 Allergies Allergies Coded Allergies Lisinopril (Verified Allergy, Unknown, 12/03/16) Review of Systems All other ROS: ROS reviewed as documented in chart Exam I&O / VS 12/05/16 12/05/16 12/06/16 15:00 23:00 07:00 Intake Total 120 ml 200 ml 50 ml Output Total 400 ml 1000 ml 600 ml Balance -280 ml -800 ml -550 ml Intake Oral 120 ml 200 ml 50 ml Output Urine Total 400 ml 1000 ml 600 ml # Bowel Movements 0 0 Vital Signs Date Time Temp Pulse Resp B/P Pulse Ox O2 Delivery O2 Flow Rate FiO2 12/06/16 04:00 97.9 100 21 139/99 96 12/06/16 00:00 98.1 75 21 168/92 97 12/05/16 23:00 79 12/05/16 20:43 15 12/05/16 20:29 97 21 12/05/16 20:00 97.9 76 25 147/81 96 12/05/16 16:00 98.0 86 21 131/76 98 12/05/16 15:00 77 12/05/16 12:00 97.8 86 12 137/76 95 General: No acute distress Respiratory: Lungs CTA, Non-labored respirations, BS equal, Symmetrical expansion Cardiology: Intact pulses, Irregular Rhythm Musculoskeletal: ROM, Tenderness, Swelling Neurologic: Alert, Oriented Psychiatric: Cooperative Exam Comments ox 2-3. follows, mild dysarthric speech, flat affect, minimal rt gaze preference , ou 3-2mm, vff grossly full, left ue 1/5, left leg 2-3/5 with left hemisensory , depressed msr Problem Qualifiers (1) Atrial fibrillation: Qualified Code: I48.91 - Atrial fibrillation, unspecified type (2) Hyperlipemia: Qualified Code: E78.5 - Hyperlipidemia, unspecified hyperlipidemia type (3) Hypertension: Qualified Code: I10 - Essential hypertension Juanito Reid MD Dec 06, 2016 08:06
[2016-12-06] MEDS: SODIUM CHLORIDE 0.9% FLUSH 5 ML FLUSH IV FLUSH SCH ×2 (09:00→21:00)
[2016-12-06] MEDS: CIPROFLOXACIN 500 MG TAB PO SCH ×2 (09:01→21:02)
[2016-12-06] MEDS: DOCUSATE SODIUM 100 MG CAP PO SCH ×2 (09:01→20:59)
[2016-12-06] MEDS: DIGOXIN 0.125 MG TAB PO SCH (09:01)
[2016-12-06] MEDS: PANTOPRAZOLE SODIUM 40 MG VIAL IV SCH (09:01)
[2016-12-06] MEDS: ATORVASTATIN 80 MG TAB PO SCH (09:01)
[2016-12-06] MEDS: METOPROLOL TARTRATE 100 MG TAB PO SCH ×2 (09:01→21:21)
[2016-12-06] MEDS: LOSARTAN 50 MG TAB PO SCH (09:02)
[2016-12-06] MEDS ORDERED: ASPI81TA11 PO (09:32)
--- NOTE | 2016-12-06 09:42 | HHI.PR ---
Subjective Remarks Follow-up evolving Hemorrhage in the right MCA 12/05/16-patient seen and examined; alert and oriented to self, and place. Denies any headache. by the bedside 12/06/16-patient seen and examined, stable and no acute event overnight, afebrile Objective Vitals Vital Signs Date Time Temp Pulse Resp B/P Pulse Ox O2 Delivery O2 Flow Rate FiO2 12/06/16 04:00 97.9 100 21 139/99 96 12/06/16 00:00 98.1 75 21 168/92 97 12/05/16 23:00 79 12/05/16 20:43 15 12/05/16 20:29 97 21 12/05/16 20:00 97.9 76 25 147/81 96 12/05/16 16:00 98.0 86 21 131/76 98 12/05/16 15:00 77 12/05/16 12:00 97.8 86 12 137/76 95 I/O 12/05/16 12/05/16 12/05/16 12/06/16 12/06/16 12/06/16 07:00 15:00 23:00 07:00 15:00 23:00 Intake Total 120 ml 200 ml 50 ml Output Total 600 ml 400 ml 1000 ml 600 ml Balance -600 ml -280 ml -800 ml -550 ml Intake Oral 120 ml 200 ml 50 ml Output Urine Total 600 ml 400 ml 1000 ml 600 ml # Bowel Movements 0 0 0 Result Diagram: 12/04/16 0322 12/04/16 0322 Objective Remarks GENERAL: NAD SKIN: Warm and dry. HEAD: Normocephalic. EYES: No scleral icterus. No injection or drainage. NECK: Supple, trachea midline. No JVD or lymphadenopathy. CARDIOVASCULAR: Regular rate and rhythm without murmurs, gallops, or rubs. RESPIRATORY: Breath sounds equal bilaterally. No accessory muscle use. GASTROINTESTINAL: Abdomen soft, non-tender, nondistended. MUSCULOSKELETAL: No cyanosis, or edema. 2/5 LUE; 4/5RUE BACK: Nontender without obvious deformity. No CVA tenderness. A/P Problem List: (1) Acute right MCA stroke ICD Code: I63.511 Status: Acute (2) Hyperlipemia ICD Code: E78.5 Status: Chronic (3) Hypertension ICD Code: I10 Status: Chronic (4) Atrial fibrillation ICD Code: I48.91 Status: Chronic Assessment and Plan 81-year-old man with Ischemic stroke with hemorrhagic conversion: 12/03/2016 rt mca stroke with ICH transformation but follow up CT brain stable and no significant shift 12/04/16 as well repeat 12/05/16. Resume aspirin 81 mg daily on 12/08/16. resume OAC when repeat CT Head performed in 2-3 weeks. Appreciate input from neurology as well as neurosurgery. Continue with neuro check. PT/OT/speech therapy. Will transfer patient back to [facility] Hypertension: Continue metoprolol 100 mg by mouth twice a day, losartan and Norvasc 10 mg by mouth daily Chronic A. fib: Coumadin was discontinued in view of hemorrhagic conversion and ischemic stroke. Resume aspirin 81 mg daily 12/08/16 and Continue digoxin and Lopressor Hyperlipidemia: Lipitor 80 mg at bedtime UTI: Continue Cipro Prophylaxis: PPI/SCDs. Subcutaneous heparin when okay with neurosurgery. Problem Qualifiers (1) Hyperlipemia: Qualified Code: E78.5 - Hyperlipidemia, unspecified hyperlipidemia type (2) Hypertension: Qualified Code: I10 - Essential hypertension (3) Atrial fibrillation: Qualified Code: I48.91 - Atrial fibrillation, unspecified type Celestine Kay MD Dec 06, 2016 09:42
[2016-12-06] MEDS: FERROUS SULFATE 325 MG (65 MG ELEMENTAL IRON) TAB PO SCH (17:33)
[2016-12-07] VITALS: BP 137/74; PULSE 81; RESP 13; TEMP 98.3; O2SAT 94
[2016-12-07 01:30] VITALS: BP 159/81; PULSE 89; RESP 20; TEMP 96.1; O2SAT 97
[2016-12-07] MEDS: CHLORHEXIDINE GLUCONATE 2 % 1 PACK (2 CLOTHS) TOP SCH (04:00)
[2016-12-07] MEDS: ACETAMINOPHEN/HYDROcodone 325 MG/5 MG TAB PO PRN (05:02)
[2016-12-07 05:37] VITALS: BP 119/76; PULSE 78
[2016-12-07 08:00] VITALS: BP 108/77; PULSE 79; RESP 17; TEMP 98; O2SAT 98
[2016-12-07] MEDS: METOPROLOL TARTRATE 100 MG TAB PO SCH ×2 (08:18→09:00)
[2016-12-07] MEDS: ATORVASTATIN 80 MG TAB PO SCH (08:18)
[2016-12-07] MEDS: CIPROFLOXACIN 500 MG TAB PO SCH (08:18)
[2016-12-07] MEDS: DOCUSATE SODIUM 100 MG CAP PO SCH (08:18)
[2016-12-07] MEDS: DIGOXIN 0.125 MG TAB PO SCH (08:18)
[2016-12-07] MEDS: LOSARTAN 50 MG TAB PO SCH ×2 (08:19→09:00)
[2016-12-07] MEDS: SODIUM CHLORIDE 0.9% FLUSH 5 ML FLUSH IV FLUSH SCH (08:19)
[2016-12-07] MEDS: PANTOPRAZOLE SODIUM 40 MG VIAL IV SCH (08:19)
--- NOTE | 2016-12-07 10:21 | HHI.PR ---
Subjective Remarks Follow-up evolving Hemorrhage in the right MCA 12/05/16-patient seen and examined; alert and oriented to self, and place. Denies any headache. by the bedside 12/06/16-patient seen and examined, stable and no acute event overnight, afebrile 12/07/16-patient seen and examined, no complaint, no headaches or visual change. Objective Vitals Vital Signs Date Time Temp Pulse Resp B/P Pulse Ox O2 Delivery O2 Flow Rate FiO2 12/07/16 08:00 98.0 79 17 108/77 98 12/07/16 05:37 78 119/76 12/07/16 01:30 96.1 89 20 159/81 97 12/07/16 00:00 98.3 81 13 137/74 94 12/06/16 23:00 81 12/06/16 22:38 23 12/06/16 20:00 97.9 73 14 108/62 93 12/06/16 16:00 97.4 71 15 117/60 96 12/06/16 15:00 71 12/06/16 12:00 98.6 70 15 103/59 95 I/O 12/06/16 12/06/16 12/06/16 12/07/16 12/07/16 12/07/16 07:00 15:00 23:00 07:00 15:00 23:00 Intake Total 50 ml 300 ml 120 ml 120 ml Output Total 600 ml 600 ml 1100 ml 450 ml Balance -550 ml -300 ml -980 ml -330 ml Intake Oral 50 ml 300 ml 120 ml 120 ml IV Total 0 ml Output Urine Total 600 ml 600 ml 1100 ml 450 ml # Bowel Movements 0 0 0 0 Result Diagram: 12/04/16 0322 12/04/16 0322 Imaging Last Impressions Head CT 12/05/16 0000 Signed Impressions: Service Date/Time: December 16:39 - CONCLUSION: 1. Evolving right hemispheric hemorrhagic infarct with mass effect but no herniation. No acute hemorrhage is identified. Kishan Loza MD Objective Remarks GENERAL: NAD SKIN: Warm and dry. HEAD: Normocephalic. EYES: No scleral icterus. No injection or drainage. NECK: Supple, trachea midline. No JVD or lymphadenopathy. CARDIOVASCULAR: Regular rate and rhythm without murmurs, gallops, or rubs. RESPIRATORY: Breath sounds equal bilaterally. No accessory muscle use. GASTROINTESTINAL: Abdomen soft, non-tender, nondistended. MUSCULOSKELETAL: No cyanosis, or edema. 2/5 LUE; /RUE BACK: Nontender without obvious deformity. No CVA tenderness. Procedures None A/P Problem List: (1) Acute right MCA stroke ICD Code: I63.511 Status: Acute (2) Hyperlipemia ICD Code: E78.5 Status: Chronic (3) Hypertension ICD Code: I10 Status: Chronic (4) Atrial fibrillation ICD Code: I48.91 Status: Chronic Assessment and Plan 81-year-old man with Ischemic stroke with hemorrhagic conversion: 12/03/2016 rt mca stroke with ICH transformation but follow up CT brain stable and no significant shift 12/04/16 as well repeat 12/05/16. Resume aspirin 81 mg daily on 12/08/16. resume OAC when repeat CT Head performed in 2-3 weeks. Appreciate input from neurology as well as neurosurgery. Continue with neuro check. PT/OT/speech therapy. [facility] Hypertension: BP soft therefore follow holding parameters for metoprolol 100 mg by mouth twice a day, losartan and Norvasc 10 mg by mouth daily Chronic A. fib: Coumadin was discontinued in view of hemorrhagic conversion and ischemic stroke. Resume aspirin 81 mg daily 12/08/16 and Continue digoxin and Lopressor Hyperlipidemia: Lipitor 80 mg at bedtime UTI: Continue Cipro Prophylaxis: PPI/SCDs. Subcutaneous heparin when okay with neurosurgery. Problem Qualifiers (1) Hyperlipemia: Qualified Code: E78.5 - Hyperlipidemia, unspecified hyperlipidemia type (2) Hypertension: Qualified Code: I10 - Essential hypertension (3) Atrial fibrillation: Qualified Code: I48.91 - Atrial fibrillation, unspecified type Celestine Kay MD Dec 07, 2016 10:21
[2016-12-07] MEDS ORDERED: DOCUSATE SODIUM 50 MG/SENNA 8.6 MG TAB PO PRN (11:15)
[2016-12-07 12:00] VITALS: BP 104/60; PULSE 69; RESP 18; TEMP 98.5; O2SAT 95
[2016-12-07] MEDS ORDERED: MAGNESIUM HYDROXIDE SUSP 30 ML CUP PO ONE (12:15)
[2016-12-08] MEDS ORDERED: ASPIRIN EC 81 MG TABEC PO SCH (09:00)
[2016-12-25] MEDS ORDERED: COMMODE 3-IN-11 MIS (15:38)
[2016-12-25] MEDS ORDERED: QUAD CANE/SMALL1 MI1 (15:38)
[2016-12-25] MEDS ORDERED: WHEEMIS3 (15:38)
[2016-12-30] MEDS ORDERED: METO25TA3 PO (08:35)
[2016-12-30] MEDS ORDERED: AMLO5 PO (08:35)
[2016-12-30] MEDS ORDERED: ASPI81TA11 PO (08:35)
[2016-12-30] MEDS ORDERED: PANT40TA3 PO (08:35)
[2016-12-30] MEDS ORDERED: HYDR-3516 PO (08:35)
[2016-12-30] MEDS ORDERED: DIGO0.12 PO (08:35)
[2016-12-30] MEDS ORDERED: LIPI80TA PO (08:35)
[2017-01-29] MEDS ORDERED: GABA100C4 PO (15:00)
[2017-02-26] MEDS ORDERED: GABA300C5 PO (13:23)
[2017-02-26] MEDS ORDERED: PROZ20CA11 PO (13:23)
== END 2016-12-07 12:16 | DRG 64 ==
LOC: N03A 16:15 → N03B 12-06 21:12 → N07B 12-07 01:21
PROVIDERS: ADMIT Hospitalist; ATTEND Hospitalist
DX: I61.8 Other nontraumatic intracerebral hemorrhage (principal); G93.6 Cerebral edema; N39.0 Urinary tract infection, site not specified; I69.354 Hemiplegia and hemiparesis following cerebral infarction affecting left non-dominant side; I48.2 Chronic atrial fibrillation; I10 Essential (primary) hypertension; E78.5 Hyperlipidemia, unspecified; I65.21 Occlusion and stenosis of right carotid artery; R47.02 Dysphasia; E78.00 Pure hypercholesterolemia, unspecified; I69.322 Dysarthria following cerebral infarction; Z79.01 Long term (current) use of anticoagulants
CPT/HCPCS: 70450; 80048; 80053; 83735; 84100; 85007; 85027; 85610; 85730; C9113; J2270; J2405; J3430; J7030

== ENCOUNTER → 2017-01-27 | Outpatient (CLI) | payer MEDICARE, BC ==
[~2017-01-27] MED LIST changes: -ACET325T PO; +AMLO5 PO; -CIPR-9 PO; +COMMODE 3-IN-11 MIS; -COZA50TA PO; -FERR1TAB58 PO; +GABA100C4 PO; +GABA300C5 PO; +HYDR-3516 PO; -LACTCHW3 CHEW; -METO100T PO; +METO25TA3 PO; +PANT40TA3 PO; +PROZ20CA11 PO; +QUAD CANE/SMALL1 MI1; -WARF-20 PO; +WHEEMIS3
--- NOTE | 2017-01-27 15:18 | RADRPT ---
EXAM DATE/TIME: 01/27/2017 13:17 [place] COMPARISON: No previous studies available for comparison. INDICATIONS : Left shoulder pain since November. MEDICAL HISTORY : Hypertension. SURGICAL HISTORY : None. ENCOUNTER: Subsequent ACUITY: 2 months PAIN SCORE: 5/10 LOCATION: Left shoulder TECHNIQUE: Multiplanar, multisequence MRI examination was performed without contrast. FINDINGS: ROTATOR CUFF: The supraspinatus, infraspinatus, subscapularis, and teres minor tendons are intact. Undersurface ten dinopathy involving the distal fibers of the supraspinatus tendon involving up to 50% of thickness o f the tendon. LABRUM: Some fluid signal between the posterior superior labrum and the glenoid could be a small labral tear. MARROW/CARTILAGE: Bone marrow signal is homogeneous. Glenohumeral joint articular cartilage is within normal limits. OTHER: Acromioclavicular joint is moderately hypertrophied and edematous . Proximal biceps tendon is intact . CONCLUSION: 1. Undersurface tendinopathy involving the distal 1.5 cm of the supraspinatus tendon involving up to 50% of the thickness of the tendon. 2. Moderate hypertrophy and edema of the acromioclavicular joint. 3. Questionable posterior superior labral tear. Osito Calabrese MD on January 27, 2017 at 15:11 Board Certified Radiologist. This report was verified electronically.
== END ==
LOC: HRAD 12:36
DX: M25.512 Pain in left shoulder (principal)
CPT/HCPCS: 73221